=== PATIENT | male | born 1945 | race African-American/Black ===

== ENCOUNTER 2016-06-23 11:31 | Emergency (ER) | payer OTHER ==
[~2016-06-23] VITALS: Ht 170.2 cm; Wt 57.0 kg
[~2016-06-23 11:31] MED LIST: AMLO5TAB22 PO
[2016-06-23 11:35] VITALS: BP 170/87; PULSE 82; RESP 20; TEMP 97.9; O2SAT 95
[2016-06-23] MEDS ORDERED: TRAM50TA PO (11:52)
[2016-06-23] MEDS ORDERED: LISI-519 PO (11:52)
[2016-06-23 13:18] VITALS: BP 149/94; PULSE 75; RESP 16; O2SAT 100
[2016-06-23] MEDS ORDERED: diphenhydrAMINE HCL 50 MG/ML VIAL IV PUSH ONE (13:30)
[2016-06-23] MEDS ORDERED: SODIUM CHLOR 0.9% 1000 ML INJ 1,000 ML IV ONE (13:30)
[2016-06-23] MEDS ORDERED: PROCHLORPERAZINE INJ 10 MG/2 ML VIAL IVS ONE (13:30)
[2016-06-23] MEDS ORDERED: KETOROLAC TROMETHAMINE 30 MG/ML (IVP) VIAL IV PUSH ONE (13:30)
[2016-06-23 14:03] LABS: AUTOMATED NEUTROPHIL # 3.2 TH/MM3 (1.8-7.7); BASOPHIL # 0.1 TH/MM3 (0-0.2); BASOPHIL % 1.4 % (0.0-2.0); EOSINOPHIL # 0.1 TH/MM3 (0-0.4); EOSINOPHIL % 1.5 % (0.0-4.0); HEMATOCRIT 35.7 % (39.0-51.0); HEMO FLAGS DIFF FINAL; LYMPH % 35.6 % (9.0-44.0); LYMPHOCYTE # 2.2 TH/MM3 (1.0-4.8); MEAN CORPUSCULAR HEMOGLOBIN 32.1 PG (27.0-34.0); MEAN CORPUSCULAR HGB CONC 33.8 % (32.0-36.0); MONO % 10.2 % (0.0-8.0); NEUT % 51.3 % (16.0-70.0); PLATELET COUNT 411 TH/MM3 (150-450); RED BLOOD COUNT 3.75 MIL/MM3 (4.50-5.90); RED CELL DISTRIBUTION WIDTH 14.6 % (11.6-17.2); WHITE BLOOD COUNT 6.2 TH/MM3 (4.0-11.0)
[2016-06-23 14:16] LABS: ALKALINE PHOSPHATASE 108 U/L (45-117); ALT (GPT) 11 U/L (12-78); ANION GAP 6 MEQ/L (5-15); AST (GOT) 13 U/L (15-37); BICARBONATE 30.8 MEQ/L (21.0-32.0); BLOOD UREA NITROGEN 12 MG/DL (7-18); CHLORIDE 102 MEQ/L (98-107); GLOMERULAR FILTRATION RATE 110 ML/MIN (>89); POTASSIUM 4.4 MEQ/L (3.5-5.1); SODIUM (NA) 139 MEQ/L (136-145); TOTAL BILIRUBIN ADULT 0.4 MG/DL (0.2-1.0)
[2016-06-23 14:18] LABS: CREATINE KINASE 72 U/L (39-308)
--- NOTE | 2016-06-23 14:43 | PD ---
HPI Chief Complaint: Cold / Flu Symptoms Time Seen by Provider: 13:13 Travel History International Travel<30 days: No Contact w/Intl Traveler<30days: No Traveled to known affect area: No History of Present Illness HPI Patient is a 70 year old male who comes in complaining of body aches for 2 months. He says he has had pain all over including his chest since April. He also complains of a headache, which he says he has had for the past year. He has neck issues and says his headaches come from this. He says his pain today in his head is the same as it has always been. He says he feels like his bodyaches have become worse over the past 2 weeks and he has developed a cold. He denies fever or chills. He says he has some congestion and cough. He was here today with his girlfriend and one year old daughter who came in due to cold symptoms. PFSH Past Medical History Hx Anticoagulant Therapy: No Arthritis: Yes (OSTEOARTHRITIS) Asthma: Yes Atrial Fibrillation: Yes Autoimmune Disease: No Blood Disorders: No Anxiety: No Depression: No Heart Rhythm Problems: Yes Cancer: No Cardiac Catheterization: No Cardiovascular Problems: Yes High Cholesterol: Yes Chemotherapy: No Chest Pain: Yes Congestive Heart Failure: No COPD: No Cerebrovascular Accident: No Coronary Artery Disease: Yes Diabetes: No Diminished Hearing: No Endocrine: No Gastrointestinal Disorders: Yes GERD: Yes Genitourinary: No Hypertension: Yes Immune Disorder: No Musculoskeletal: No Neurologic: Yes Reproductive: No Respiratory: Yes Immunizations Current: No Myocardial Infarction: Yes (1983) Schizophrenia: Yes Seizures: Yes (WITH CRACK USE) Sleep Apnea: No Ulcer: Yes Tetanus Vaccination: Unknown Influenza Vaccination: Yes Past Surgical History Abdominal Surgery: No AICD: No Arteriovenous Shunt: No Cardiac Surgery: No Coronary Artery Bypass Graft: No Ear Surgery: No Endocrine Surgery: No Eye Surgery: No Genitourinary Surgery: Yes (RIGHT TESTICLE HYDROCELE) Gynecologic Surgery: No Insulin Pump: No Joint Replacement: No Neurologic Surgery: Yes (LAMINECTOMY, [address] 2-) Oral Surgery: Yes (TONSILLECTOMY) Pacemaker: No Thoracic Surgery: No Tonsillectomy: Yes Other Surgery: Yes (LAMINECTOMY X 2) Social History Alcohol Use: Yes (DAILY) Tobacco Use: Yes (CIGARETTES 1- PACK PER DAY) Substance Use: No Allergies-Medications (Allergen,Severity, Reaction): Coded Allergies: *MDRO Multi-Drug Resistant Organism (Verified Adverse Reaction, Unknown, ) MRSA (wounds) - 08/27/04, 08/13/06 Reported Meds & Prescriptions Reported Meds & Active Scripts Active Reported Lisinopril 5 Mg Tab 5 Mg PO DAILY Tramadol (Tramadol HCl) 50 Mg Tab 10 Mg PO DAILY Review of Systems Except as stated in HPI: all other systems reviewed are Neg General / Constitutional: No: Fever, Chills Eyes: No: Blurred Vision HENT: Positive: Headaches, Congestion Cardiovascular: Positive: Chest Pain or Discomfort Respiratory: Positive: Cough, No: Shortness of Breath Gastrointestinal: No: Nausea, Vomiting Musculoskeletal: Positive: Myalgias Skin: No Rash, No Change in Pigmentation Neurologic: No: Weakness, Dizziness Physical Exam Narrative GENERAL: Awake and alert in no acute distress. SKIN: Warm and dry. HEAD: Atraumatic. Normocephalic. EYES: Pupils equal and round. No scleral icterus. ENT: Mucous membranes pink and moist. NECK: Trachea midline. No JVD. CARDIOVASCULAR: Regular rate and rhythm. No murmur appreciated. RESPIRATORY: No accessory muscle use. Clear to auscultation. Breath sounds equal bilaterally. GASTROINTESTINAL: Abdomen soft, non-tender, nondistended. MUSCULOSKELETAL: No obvious deformities. No clubbing. No cyanosis. No edema. NEUROLOGICAL: Awake and alert. No obvious cranial nerve deficits. Motor grossly within normal limits. Normal speech. PSYCHIATRIC: Appropriate mood and affect; insight and judgment normal. Data Data Last Documented VS Vital Signs Date Time Temp Pulse Resp B/P Pulse Ox O2 Delivery O2 Flow Rate FiO2 06/23/16 15:07 14 06/23/16 15:00 71 146/85 98 Room Air 06/23/16 11:35 97.9 Orders Electrocardiogram (06/23/16 ) Complete Blood Count With Diff (06/23/16 13:22) Comprehensive Metabolic Panel (06/23/16 13:22) Troponin I (06/23/16 13:22) Influenzae A/B Antigen (06/23/16 13:22) Chest, Pa & Lat (06/23/16 ) Ckmb (Isoenzyme) Profile (06/23/16 13:22) Sodium Chlor 0.9% 1000 Ml Inj (Ns 1000 M (06/23/16 13:30) Prochlorperazine Inj (Compazine Inj) (06/23/16 13:30) Diphenhydramine Inj (Benadryl Inj) (06/23/16 13:30) Ketorolac Inj (Toradol Inj) (06/23/16 13:30) Labs Laboratory Tests Test 06/23/16 13:40 White Blood Count 6.2 TH/MM3 Red Blood Count 3.75 MIL/MM3 Hemoglobin 12.1 GM/DL Hematocrit 35.7 % Mean Corpuscular Volume 95.0 FL Mean Corpuscular Hemoglobin 32.1 PG Mean Corpuscular Hemoglobin 33.8 % Concent Red Cell Distribution Width 14.6 % Platelet Count 411 TH/MM3 Mean Platelet Volume 7.7 FL Neutrophils (%) (Auto) 51.3 % Lymphocytes (%) (Auto) 35.6 % Monocytes (%) (Auto) 10.2 % Eosinophils (%) (Auto) 1.5 % Basophils (%) (Auto) 1.4 % Neutrophils # (Auto) 3.2 TH/MM3 Lymphocytes # (Auto) 2.2 TH/MM3 Monocytes # (Auto) 0.6 TH/MM3 Eosinophils # (Auto) 0.1 TH/MM3 Basophils # (Auto) 0.1 TH/MM3 CBC Comment DIFF FINAL Differential Comment Sodium Level 139 MEQ/L Potassium Level 4.4 MEQ/L Chloride Level 102 MEQ/L Carbon Dioxide Level 30.8 MEQ/L Anion Gap 6 MEQ/L Blood Urea Nitrogen 12 MG/DL Creatinine 0.84 MG/DL Estimat Glomerular Filtration 110 ML/MIN Rate Random Glucose 65 MG/DL Calcium Level 9.2 MG/DL Total Bilirubin 0.4 MG/DL Aspartate Amino Transf 13 U/L (AST/SGOT) Alanine Aminotransferase 11 U/L (ALT/SGPT) Alkaline Phosphatase 108 U/L Total Creatine Kinase 72 U/L Troponin I LESS THAN 0.02 NG/ML Total Protein 7.3 GM/DL Albumin 2.8 GM/DL [facility] Medical Decision Making Medical Screen Exam Complete: Yes Emergency Medical Condition: Yes Medical Record Reviewed: Yes Interpretation(s) ECG shows normal sinus rhythm at 66, no ST elevation or depression Differential Diagnosis Pneumonia versus influenza versus URI versus chronic pain Narrative Course Patient is a 70-year-old male comes in complaining of pain all over as well as a headache. He has had the symptoms for several months up to a year. He says they've been worse for the past 2 weeks. Exam shows no acute abnormalities. IV established, labs sent. Labs show no acute abnormalities. ECG shows no signs of ischemia. Patient is mainly complaining of pain everywhere, does not really seem to be having chest pain specifically. He did have a stress test done in February that was normal. Patient given IV fluids, Compazine, Benadryl, Toradol. He states he is feeling a little bit better. Chest x-ray shows no acute abnormalities. Patient will be discharge at this time to follow-up with his doctor. Advised to rest and drink plenty of fluids. Advised to take ibuprofen as needed for pain. Advised to return to the ED as needed for any worsening symptoms. He is comfortable with discharge at this time. Diagnosis Primary Impression: Viral syndrome Patient Instructions: General Instructions, Viral Syndrome (ED) Additional Instructions: Drink plenty of fluids. Take Ibuprofen as needed for pain. Follow up with your doctor. Return to the ED as needed for any worsening symptoms. Disposition: 01 DISCHARGE HOME Condition: Stable Araceli Brewster MD Jun 23, 2016 14:43
--- NOTE | 2016-06-23 14:59 | RADRPT ---
EXAM DATE/TIME: 06/23/2016 14:28 [facility] COMPARISON: CHEST SINGLE AP, February 18, 2016, 16:24. INDICATIONS : Patient complains of cough and shortness of breath. MEDICAL HISTORY : Chronic obstructive pulmonary disease. Asthma. SURGICAL HISTORY : None. ENCOUNTER: Initial ACUITY: 2 weeks PAIN SCORE: 0/10 LOCATION: chest FINDINGS: PA and lateral views of the chest demonstrate a normal-sized cardiac silhouette. There is no effusion , consolidation, or pneumothorax. The bones and soft tissues demonstrate no acute abnormality. CONCLUSION: No acute cardiopulmonary abnormality is identified. Jb Sterling MD on June 23, 2016 at 14:57 Board Certified Radiologist. This report was verified electronically.
[2016-06-23 15:00] VITALS: BP 146/85; PULSE 71; RESP 19; O2SAT 98
[2016-06-23 15:07] VITALS: RESP 14
--- NOTE | 2016-06-25 21:31 | EKG ---
Date Performed: 06/23/2016 Time Performed: 13:25:22 PTAGE: 70 years EKG: Sinus rhythm WITH SHORT IN INTERVAL POSSIBLE RIGHT VENTRICULAR CONDUCTION DELAY BORDERLINE ECG PREVIOUS TRACING : 02/18/2016 22.22 Compared to prior tracing no significant change DOCTOR: Félix Peck Interpretating Date/Time 06/25/2016 21:30:02
== END 2016-06-23 15:23 | disposition home or self-care (01) ==
LOC: NEPB 11:31 → NEPA 15:23
DX: B34.9 Viral infection, unspecified (principal); I48.91 Unspecified atrial fibrillation; E78.00 Pure hypercholesterolemia, unspecified; I25.10 Atherosclerotic heart disease of native coronary artery without angina pectoris; I10 Essential (primary) hypertension; K21.9 Gastro-esophageal reflux disease without esophagitis; F17.210 Nicotine dependence, cigarettes, uncomplicated; I25.2 Old myocardial infarction
CPT/HCPCS: 71020; 80053; 82550; 84484; 85025; 87804; 93005; 96361; 96374; 96375; 99284; J0780; J1200; J1885; J7030

== ENCOUNTER 2016-09-30 11:14 | Emergency (ER) | payer OTHER ==
[~2016-09-30] VITALS: Ht 167.6 cm; Wt 54.0 kg
[~2016-09-30 11:14] MED LIST changes: -AMLO5TAB22 PO; +LISI-519 PO; +TRAM50TA PO
[2016-09-30 11:17] VITALS: BP 161/106; PULSE 81; RESP 17; TEMP 98; O2SAT 98
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
[2016-09-30] MEDS ORDERED: IBUP800T23 PO (13:39)
== END 2016-09-30 13:48 | disposition home or self-care (01) ==
LOC: NEPK 11:14
DX: S62.521A Displaced fracture of distal phalanx of right thumb, initial encounter for closed fracture (principal); M95.12 Cauliflower ear, left ear; R51 Headache; R42 Dizziness and giddiness; R68.84 Jaw pain; I10 Essential (primary) hypertension; E78.00 Pure hypercholesterolemia, unspecified; F17.200 Nicotine dependence, unspecified, uncomplicated; Y04.2XXA Assault by strike against or bumped into by another person, initial encounter; Z87.39 Personal history of other diseases of the musculoskeletal system and connective tissue; Z87.09 Personal history of other diseases of the respiratory system; Z86.79 Personal history of other diseases of the circulatory system; Z87.19 Personal history of other diseases of the digestive system; Z86.69 Personal history of other diseases of the nervous system and sense organs; Z86.59 Personal history of other mental and behavioral disorders
CPT/HCPCS: 29130; 70450; 73140

== ENCOUNTER 2017-06-23 05:02 | Emergency (ER) | payer OTHER ==
[~2017-06-23] VITALS: Ht 177.8 cm; Wt 65.0 kg
[~2017-06-23 05:02] MED LIST changes: +IBUP1TAB7 PO
[2017-06-23 05:04] VITALS: BP 217/133; PULSE 87; RESP 20; TEMP 97; O2SAT 99
[2017-06-23] MEDS ORDERED: SODIUM CHLOR 0.9% 1000 ML INJ 1,000 ML IV SCH (05:31)
[2017-06-23] MEDS ORDERED: KETOROLAC TROMETHAMINE 30 MG/ML (IVP) VIAL IVP ONE (05:45)
[2017-06-23] MEDS ORDERED: SODIUM CHLORIDE 0.9% FLUSH 10 ML FLUSH IV FLUSH PRN (05:45)
[2017-06-23] MEDS ORDERED: ONDANSETRON HCL 4 MG/2 ML VIAL IVP ONE (05:45)
--- NOTE | 2017-06-23 05:47 | PD ---
HPI . Abdominal pain Chief Complaint: Abdominal Pain Time Seen by Provider: 05:13 Travel History International Travel<30 days: No Contact w/Intl Traveler<30days: No Traveled to known affect area: No History of Present Illness HPI 71-year-old male with history of gallstones, complains of having right-sided abdominal pain that occurred shortly after having a large pork chop meal yesterday. Pain is getting worse this evening. Patient has mild nausea no vomiting denies fever chills sweats. Patient also denies diarrhea, melena or hematochezia. PFSH Past Medical History Narrative Medical Past medical history reviewed Hx Anticoagulant Therapy: No Arthritis: Yes (OSTEOARTHRITIS) Asthma: Yes Atrial Fibrillation: Yes Autoimmune Disease: No Blood Disorders: No Anxiety: No Depression: No Heart Rhythm Problems: Yes Cancer: No Cardiac Catheterization: No Cardiovascular Problems: Yes High Cholesterol: Yes Chemotherapy: No Chest Pain: Yes Congestive Heart Failure: No COPD: No Cerebrovascular Accident: No Coronary Artery Disease: Yes Diabetes: No Diminished Hearing: No Endocrine: No Gastrointestinal Disorders: Yes (GERD) GERD: Yes Genitourinary: No Heparin Induced Thrombocytopen: No Hypertension: Yes Immune Disorder: No Implanted Vascular Access Dvce: No Musculoskeletal: No Neurologic: Yes Reproductive: No Respiratory: Yes Immunizations Current: Yes Myocardial Infarction: Yes (1983) Schizophrenia: Yes Seizures: Yes (WITH CRACK USE) Sleep Apnea: No Ulcer: Yes Tetanus Vaccination: > 5 Years Influenza Vaccination: Yes Past Surgical History Abdominal Surgery: No AICD: No Arteriovenous Shunt: No Cardiac Surgery: No Coronary Artery Bypass Graft: No Ear Surgery: No Endocrine Surgery: No Eye Surgery: No Genitourinary Surgery: Yes (RIGHT TESTICLE HYDROCELE) Gynecologic Surgery: No Insulin Pump: No Joint Replacement: No Neurologic Surgery: Yes (LAMINECTOMY, [address] 2-07) Oral Surgery: Yes (TONSILLECTOMY) Pacemaker: No Thoracic Surgery: No Tonsillectomy: Yes Other Surgery: Yes (LAMINECTOMY X 2) Family History Family Myocardial Infarction: No Social History Alcohol Use: Yes (occu) Tobacco Use: Yes (1/2 ppd) Substance Use: No Allergies-Medications (Allergen,Severity, Reaction): Coded Allergies: *MDRO Multi-Drug Resistant Organism (Verified Adverse Reaction, Unknown, ) MRSA (wounds) - 08/27/04, 08/13/06 Reported Meds & Prescriptions Reported Meds & Active Scripts Active Ibuprofen 800 Mg Tab 800 Mg PO TID Reported Lisinopril 5 Mg Tab 5 Mg PO DAILY Tramadol (Tramadol HCl) 50 Mg Tab 10 Mg PO DAILY Narrative Medication Allergies and medications reviewed Review of Systems General / Constitutional: No: Fever Eyes: No: Visual changes HENT: No: Headaches Cardiovascular: No: Chest Pain or Discomfort Respiratory: No: Shortness of Breath Gastrointestinal: Positive: Nausea, Abdominal Pain, No: Vomiting, Diarrhea, Hematemesis Genitourinary: No: Urgency, Frequency, Dysuria, Hematuria Musculoskeletal: No: Pain Skin: No Rash Neurologic: No: Weakness Psychiatric: No: Depression Endocrine: No: Polydipsia Hematologic/Lymphatic: No: Easy Bruising Physical Exam Narrative GENERAL: Awake alert oriented 3 no acute distress SKIN: Warm and dry. Color is normal no diaphoresis cyanosis or pallor HEAD: Atraumatic. Normocephalic. EYES: Pupils equal and round. No scleral icterus. No injection or drainage. ENT: No nasal bleeding or discharge. Mucous membranes pink and moist. NECK: Trachea midline. No JVD. Supple full range of motion nontender CARDIOVASCULAR: Regular rate and rhythm. S1-S2 no murmurs rubs gallops RESPIRATORY: No accessory muscle use. Clear to auscultation. Breath sounds equal bilaterally. GASTROINTESTINAL: Abdomen soft, moderately tender right side, equivocal Martinez' s sign. Negative Rovsing's, less tender at McBurney's no rebound or guarding, nondistended. Hepatic and splenic margins not palpable. MUSCULOSKELETAL: Extremities without clubbing, cyanosis, or edema. No obvious deformities. NEUROLOGICAL: Awake and alert. No obvious cranial nerve deficits. Motor grossly within normal limits. Five out of 5 muscle strength in the arms and legs. Normal speech. PSYCHIATRIC: Appropriate mood and affect; insight and judgment normal. Data Data Last Documented VS Vital Signs Date Time Temp Pulse Resp B/P (MAP) Pulse Ox O2 Delivery O2 Flow Rate FiO2 06/23/17 05:04 97.0 87 20 217/133 (161) 99 Room Air Orders Orders Complete Blood Count With Diff (06/23/17 05:31) Comprehensive Metabolic Panel (06/23/17 05:31) Lipase (06/23/17 05:31) Urinalysis - C+S If Indicated (06/23/17 05:31) Ct Abd/Pel W/O Iv Contrast (06/23/17 05:31) Iv Access Insert/Monitor (06/23/17 05:31) Ondansetron Inj (Zofran Inj) (06/23/17 05:45) Sodium Chlor 0.9% 1000 Ml Inj (Ns 1000 M (06/23/17 05:31) Sodium Chloride 0.9% Flush (Ns Flush) (06/23/17 05:45) Ketorolac Inj (Toradol Inj) (06/23/17 05:45) Labs Laboratory Tests Test 06/23/17 05:35 White Blood Count 6.5 TH/MM3 Red Blood Count 4.12 MIL/MM3 Hemoglobin 13.4 GM/DL Hematocrit 40.0 % Mean Corpuscular Volume 97.3 FL Mean Corpuscular Hemoglobin 32.5 PG Mean Corpuscular Hemoglobin Concent 33.4 % Red Cell Distribution Width 16.5 % Platelet Count 271 TH/MM3 Mean Platelet Volume 8.0 FL Neutrophils (%) (Auto) 47.3 % Lymphocytes (%) (Auto) 41.0 % Monocytes (%) (Auto) 6.6 % Eosinophils (%) (Auto) 4.2 % Basophils (%) (Auto) 0.9 % Neutrophils # (Auto) 3.1 TH/MM3 Lymphocytes # (Auto) 2.7 TH/MM3 Monocytes # (Auto) 0.4 TH/MM3 Eosinophils # (Auto) 0.3 TH/MM3 Basophils # (Auto) 0.1 TH/MM3 CBC Comment DIFF FINAL Differential Comment Blood Urea Nitrogen 19 MG/DL Creatinine 1.02 MG/DL Random Glucose 115 MG/DL Total Protein 7.5 GM/DL Albumin 3.5 GM/DL Calcium Level 8.9 MG/DL Alkaline Phosphatase 109 U/L Aspartate Amino Transf (AST/SGOT) 20 U/L Alanine Aminotransferase (ALT/SGPT) 17 U/L Total Bilirubin 0.4 MG/DL Sodium Level 140 MEQ/L Potassium Level 4.0 MEQ/L Chloride Level 109 MEQ/L Carbon Dioxide Level 26.0 MEQ/L Anion Gap 5 MEQ/L Estimat Glomerular Filtration Rate 88 ML/MIN Lipase 131 U/L MDM Medical Decision Making Medical Screen Exam Complete: Yes Emergency Medical Condition: Yes Medical Record Reviewed: Yes Differential Diagnosis Abdominal pain, cholecystitis, acute appendicitis, colitis, diverticulitis, renal colic Narrative Course CT abdomen and pelvis noncontrast reviewed. Patient has dilated right ureter proximal to distal two thirds. Possible ureteral calculi noted and pelvis. Patient had near complete improvement with Toradol IV. Laboratory examinations reviewed, no significant abnormalities Diagnosis Primary Impression: Renal colic on right side Patient Instructions: Abdominal Pain (ED), General Instructions, Renal Colic ( ED) Additional Instructions: Drink plenty of fluids. Motrin 400 mg twice daily for pain. Ultram 50 mg every 8 hours as needed for further pain. Follow-up with your doctor, recommend follow-up with urology. Return for worsening Scripts Ibuprofen (Ibuprofen) 400 Mg Tab 400 MG PO Q8H Y for PAIN SCALE 1 TO 10, #15 TAB 0 Refills Prov: Samm Queen MD 06/23/17 Disposition: 01 DISCHARGE HOME Condition: Stable Samm Queen MD Jun 23, 2017 05:47
[2017-06-23 05:54] LABS: AUTOMATED NEUTROPHIL # 3.1 TH/MM3 (1.8-7.7); BASOPHIL # 0.1 TH/MM3 (0-0.2); BASOPHIL % 0.9 % (0.0-2.0); EOSINOPHIL # 0.3 TH/MM3 (0-0.4); EOSINOPHIL % 4.2 % (0.0-4.0); HEMOGLOBIN 13.4 GM/DL (13.0-17.0); LYMPHOCYTE # 2.7 TH/MM3 (1.0-4.8); MEAN CELL VOLUME 97.3 FL (80.0-100.0); MEAN CORPUSCULAR HEMOGLOBIN 32.5 PG (27.0-34.0); MEAN CORPUSCULAR HGB CONC 33.4 % (32.0-36.0); MONO % 6.6 % (0.0-8.0); MONOCYTE # 0.4 TH/MM3 (0-0.9); NEUT % 47.3 % (16.0-70.0); PLATELET COUNT 271 TH/MM3 (150-450); RED BLOOD COUNT 4.12 MIL/MM3 (4.50-5.90); RED CELL DISTRIBUTION WIDTH 16.5 % (11.6-17.2); WHITE BLOOD COUNT 6.5 TH/MM3 (4.0-11.0)
[2017-06-23 06:09] LABS: ALBUMIN 3.5 GM/DL (3.4-5.0); ALT (GPT) 17 U/L (12-78); AST (GOT) 20 U/L (15-37); BLOOD UREA NITROGEN 19 MG/DL (7-18); CALCIUM 8.9 MG/DL (8.5-10.1); CHLORIDE 109 MEQ/L (98-107); CREATININE 1.02 MG/DL (0.60-1.30); GLOMERULAR FILTRATION RATE 88 ML/MIN (>89); GLUCOSE,RANDOM 115 MG/DL (74-106); LIPASE 131 U/L (73-393); SODIUM (NA) 140 MEQ/L (136-145)
[2017-06-23 06:11] LABS: ALKALINE PHOSPHATASE 109 U/L (45-117); TOTAL BILIRUBIN ADULT 0.4 MG/DL (0.2-1.0); TOTAL PROTEIN 7.5 GM/DL (6.4-8.2)
--- NOTE | 2017-06-23 06:22 | RADRPT ---
EXAM DATE/TIME: 06/23/2017 05:43 [facility] COMPARISON: No previous studies available for comparison. INDICATIONS : Right sided abdominal pain. ORAL CONTRAST: No oral contrast ingested. RADIATION DOSE: 4.52 CTDIvol (mGy) MEDICAL HISTORY : Myocardial infarction. Cardiovascular disease Hypertension.Asthma SURGICAL HISTORY : None. ENCOUNTER: Initial ACUITY: 1 day PAIN SCALE: 7/10 LOCATION: abdomen TECHNIQUE: Volumetric scanning of the abdomen and pelvis was performed. Using automated exposure control and ad justment of the mA and/or kV according to patient size, radiation dose was kept as low as reasonably achievable to obtain optimal diagnostic quality images. DICOM format image data is available electro nically for review and comparison. FINDINGS: LOWER LUNGS: The visualized lower lungs are clear. LIVER: Homogeneous density without lesion. There is no dilation of the biliary tree. No calcified gallston es. SPLEEN: Normal size without lesion. PANCREAS: Within normal limits. KIDNEYS: There is slight prominence of the right renal collecting system and proximal ureter in comparison to the left. Patient described small right sided renal calculi are not demonstrated on current exam. 6 m m calcified density in the right pelvis is difficult to localize but does not appear to correspond to the course of the distal ureter. Kidneys are otherwise unremarkable. ADRENAL GLANDS: Within normal limits. VASCULAR: Prominent atherosclerotic calcifications of the infrarenal abdominal aorta with focal ectasia measuri ng up to 2.4 cm. There is also likely focal dissection of the distal abdominal aorta near the bifurca tion. BOWEL/MESENTERY: The stomach, small bowel, and colon demonstrate no acute abnormality. Appendix is visualized and nor mal in appearance. There is no free intraperitoneal air or fluid. ABDOMINAL WALL: Within normal limits. RETROPERITONEUM: There is no lymphadenopathy. BLADDER: No wall thickening or mass. REPRODUCTIVE: Within normal limits. INGUINAL: There is no lymphadenopathy or hernia. MUSCULOSKELETAL: Degenerative spondylosis of the lower lumbar spine. CONCLUSION: 1. Slight prominence of the right renal collecting system and proximal ureter. No definite radiopaque renal calculi are noted although a 6 mm calcification in the right pelvis is difficult to definitive ly localize. This finding is nonspecific but may reflects the sequela of a recently passed stone. 2. Normal appendix. 3. Prominent atherosclerotic calcifications of the infrarenal aorta with focal ectasia measuring up t o 2.4 cm and likely focal dissection near the bifurcation. Gaston Wu MD on June 23, 2017 at 6:12 Board Certified Radiologist. This report was verified electronically.
[2017-06-23] MEDS ORDERED: IBUP1TAB5 PO (06:33)
[2017-06-23] MEDS ORDERED: TRAM50 PO (06:59)
== END 2017-06-23 08:20 | disposition home or self-care (01) ==
LOC: NEPC 05:02
DX: N23 Unspecified renal colic (principal); R11.0 Nausea; M19.90 Unspecified osteoarthritis, unspecified site; I48.91 Unspecified atrial fibrillation; J45.909 Unspecified asthma, uncomplicated; I10 Essential (primary) hypertension; K80.20 Calculus of gallbladder without cholecystitis without obstruction; Z72.0 Tobacco use
CPT/HCPCS: 74176; 80053; 83690; 85025; 96374; 96375; 99285; J1885; J2405; J7030

== ENCOUNTER 2018-01-24 10:43 | Inpatient (IN) ==
--- NOTE | 2018-01-24 11:11 | CT ---
EXAM DATE: 01/24/2018 11:06 AM EDT AGE/SEX: 72 years / Male INDICATIONS: Stroke alert. Left side weakness and facial droop. CLINICAL DATA: This is the patient's initial encounter. Patient reports that signs and symptoms have been present for 1 day and indicates a pain score of 0/10. MEDICAL/SURGICAL HISTORY: None. None. RADIATION DOSE: 35.74 CTDI (mGy) COMPARISON: [facility], CT BRAIN W/O CONTRAST, 09/30/2016. . TECHNIQUE: CT of the head without contrast. Using automated exposure control and adjustment of the mA and/or kV according to patient size, radiation dose was kept as low as reasonably achievable to ob tain optimal diagnostic quality images. DICOM format image data is available electronically for revi ew and comparison. FINDINGS: Cerebrum: The ventricles are normal for age. No evidence of midline shift, mass lesion, hemorrhage or acute infarction. No extraaxial fluid collections are seen. Posterior Fossa: The cerebellum and brainstem are intact. The 4th ventricle is midline. The cerebe llopontine angle is unremarkable. Extracranial: The visualized portion of the orbits is intact. Skull: The calvaria is intact. No evidence of skull fracture. CONCLUSION: Negative CT Head non contrast. Report was called by [Corey Cummings at 1109 ] Electronically signed by: Jb Nicole MD 01/24/2018 11:10 AM EDT
[2018-01-24] MEDS ORDERED: ALTEPLASE DRIP IV.SIG ONE (11:37)
[2018-01-24] MEDS ORDERED: Alteplase Bolus 9 MG/9 ML Syringe IV.PUSH ONE (11:37)
--- NOTE | 2018-01-24 11:38 | CT ---
EXAM DATE: 01/24/2018 11:21 AM EDT AGE/SEX: 72 years / Male INDICATIONS: Stroke alert. Left side weakness and facial droop. CLINICAL DATA: This is the patient's initial encounter. Patient reports that signs and symptoms have been present for 1 day and indicates a pain score of 0/10. MEDICAL/SURGICAL HISTORY: None. None. RADIATION DOSE: 28.14 CTDI (mGy) COMPARISON: [facility] [place], CT HEAD W/O CONTRAST, 01/24/2018. . TECHNIQUE: Volumetric scanning was performed using a multi-row detector CT scanner during bolus infu nirali of 77 ml Visipaque 320 (iodixanol) nonionic water-soluble contrast as a single exam dose. The data was post processed with a variety of visualization algorithms including full volume maximum int ensity projection, multi-planar sliding thin slab reformation, curved planar reformation, and surface rendering techniques. Using automated exposure control and adjustment of the mA and/or kV according to patient size, radiation dose was kept as low as reasonably achievable to obtain optimal diagnosti c quality images. DICOM format image data is available electronically for review and comparison. FINDINGS: There is excellent visualization of the major intracranial arteries out to the second-order branch ve ssels. There is no evidence for aneurysm, vessel truncation or stenosis, and no evidence for vascula r malformation. There is mild atherosclerotic disease involving the carotid siphon on bilaterally. CONCLUSION: 1. Mild atherosclerotic disease, otherwise unremarkable. Electronically signed by: Jed Alvarez MD 01/24/2018 11:37 AM EDT
--- NOTE | 2018-01-24 11:48 | CT ---
EXAM DATE: 01/24/2018 11:32 AM EDT AGE/SEX: 72 years / Male INDICATIONS: Stroke alert. Left side weakness and facial droop. CLINICAL DATA: This is the patient's initial encounter. Patient reports that signs and symptoms have been present for 1 day and indicates a pain score of 0/10. MEDICAL/SURGICAL HISTORY: None. None. RADIATION DOSE: 28.14 CTDI (mGy) COMPARISON: No prior exams available for comparison. TECHNIQUE: Volumetric scanning was performed using a multirow detector CT scanner during bolus infus ion of 77 ml Visipaque 320 (iodixanol) nonionic water-soluble contrast as a single exam dose. The data was postprocessed with a variety of visualization algorithms including full-volume maximum inten sity projection, multiplanar sliding thin-slab reformation, curved-planar reformation, and surface-re ndering techniques. Using automated exposure control and adjustment of the mA and/or kV according to patient size, radiation dose was kept as low as reasonably achievable to obtain optimal diagnostic q uality images. DICOM format image data is available electronically for review and comparison. Percent stenosis is calculated using the diameter of the stenotic region over the diameter of the nor mal distal internal carotid artery. FINDINGS: There is slight atherosclerotic plaquing at the origin of the left subclavian artery from the aortic arch and origin of bilateral ICAs. No significant stenosis is seen. The vertebral arteries are intact . CONCLUSION: 1. Mild atherosclerotic changes, otherwise unremarkable. Electronically signed by: Jed Alvarez MD 01/24/2018 11:46 AM EDT
--- NOTE | 2018-01-24 11:54 | XR ---
EXAM DATE: 01/24/2018 11:51 AM EDT AGE/SEX: 72 years / Male INDICATIONS: Stroke alert. CLINICAL DATA: This is the patient's initial encounter. Patient reports that signs and symptoms have been present for 1 day and indicates a pain score of Nonresponsive. MEDICAL/SURGICAL HISTORY: Non-responsive. Non-responsive. COMPARISON: [facility] – [place], CHEST SINGLE AP, 02/18/2016. . FINDINGS: No significant new focal pleural or parenchymal opacities. Stable mild elevation of the left hemidiap hragm. The cardiomediastinal contours are stable. Osseous structures are intact. CONCLUSION: 1. No acute abnormality or significant interval change. Electronically signed by: Gaston Wu MD 01/24/2018 11:53 AM EDT
--- NOTE | 2018-01-24 11:56 | ED ---
HPI General Chief Complaint: Stroke Alert Stated Complaint: Stroke Alert Time Seen by Provider: 01/24/18 10:50 History of Present Illness HPI Narrative: Patient brought in by [facility] for stroke alert. Patient was fishing with his friends and stated that he was not feeling well and felt weak. He called 911. EMS arrived on the scene they stated that he was weak on the left with left facial droop. Patient is complaining of a headache. He denies taking any blood thinners. He denies chest pain or shortness of breath. Related Data Home Medications Medication Instructions Recorded Confirmed No Known Home Medications 01/24/18 01/24/18 Allergies Allergy/AdvReac Type Severity Reaction Status Date / Time *MDRO Multi-Drug Resistant AdvReac Unknown Uncoded 06/23/17 05:08 Organism Review of Systems ROS: all other systems reviewed are negative [facility] Social History Social History Second Hand Smoke Exposure: Yes Smoking Status: Current every day smoker Tobacco Type: Cigarettes How Often Do You Have a Drink Containing Alcohol: 4 or more times a week Recent Travel in [facility] within the Last 8 Weeks: No Recent Out of Country Travel within the Last 8 Weeks: No Immunization History Tetanus Immunization: Unsure Exam Narrative Exam Narrative: GENERAL: Drowsy. SKIN: Focused skin assessment warm/dry. HEAD: Atraumatic. Normocephalic. EYES: Pupils equal and round. No scleral icterus. No injection or drainage. Extraocular muscles intact bilaterally. ENT: No nasal bleeding or discharge. Mucous membranes pink and moist. NECK: Trachea midline. No JVD. CARDIOVASCULAR: Regular rate and rhythm. No murmur appreciated. RESPIRATORY: No accessory muscle use. Clear to auscultation. Breath sounds equal bilaterally. GASTROINTESTINAL: Abdomen soft, non-tender, nondistended. Hepatic and splenic margins not palpable. MUSCULOSKELETAL: No obvious deformities. No clubbing. No cyanosis. No edema. NEUROLOGICAL: Drowsy. No obvious cranial nerve deficits. Motor grossly within normal limits. Slight slurred speech. Decreased sensation on the left. Left facial droop. NIH stroke scale initially of 19. PSYCHIATRIC: Appropriate mood and affect; insight and judgment normal. Course Initial Documented Vital Signs Pulse Rate 81 01/24/18 10:44 Respiratory Rate 17 01/24/18 10:44 Blood Pressure 155/91 H 01/24/18 10:44 Pulse Oximetry 96 01/24/18 10:44 Last Documented Vital Signs Pulse Rate 76 01/24/18 11:22 Respiratory Rate 18 01/24/18 11:22 Blood Pressure 158/97 H 01/24/18 11:22 Pulse Oximetry 98 01/24/18 11:22 Critical Care Time Critical Care Time: Yes Total Critical Care Time: 30 Attestation: Aggregate critical care time was 30 minutes. Time to perform other separately billable procedures was not included in the critical care time. My time did not include minutes spent treating any other patients simultaneously or on activities that did not directly contribute to the patient's treatment. The services I provided to this patient were to treat and/or prevent clinically significant deterioration that could result in: Permanent neurological deficit, , increased morbidity I provided critical care services requiring my management, as noted below: Chart data review, documentation time, medication orders and management, vital sign assessments/reviewing monitor data, ordering and reviewing lab tests, ordering and interpreting/reviewing x-rays and diagnostic studies, care of the patient and discussion of the patient with the admitting physicians. NIH Stroke Scale NIHSS Time Completed NIHSS Time Completed: 10:48 NIH Stroke Scale Level of Consciousness: 1-Drowsy Orientation Questions: 1-One task correct Responds to Commands: 1-One task correct Gaze Eye Movement: 0-Horizontal movement WNL Visual Oliva: 0-No visual field defect Facial Movement: 1-Minor facial palsy Motor Functions Arm LEFT: 3-No effort against gravity Motor Functions Arm RIGHT: 3-No effort against gravity Motor Functions Leg LEFT: 3-No effort against gravity Motor Functions Leg RIGHT: 3-No effort against gravity Limb Ataxia: 0-No ataxia Sensory Loss: 1-Mild sensory loss Best Language: 1-Mild aphasia Articulation: 1-Mild dysarthia Extinction or Inattention Sensory: 0-Absent Total: 19 Quality Measure Queries Stroke Last date observed well: 01/24/18 Last time observed well: 10:15 Medical Decision Making MDM Narrative Medical decision making narrative: Patient presents to the emergency department as a stroke alert. Initial stroke scale score of 19. Labs, EKG, chest x-ray, head CT, CTA head and neck ordered. This case with neurology on-call,Isabel. Advised to give TPA. Patient was concented for tpa and advised of risk of bleeding, he gave verbal consent. Labs: cbc wnl, POC chemistry slight decrease potassium, normal creatinine; CXR- no acute change, head CT: No acute process; CTA head: CONCLUSION:1. Mild atherosclerotic disease, otherwise unremarkable. CTA neck: CONCLUSION:1. Mild atherosclerotic changes, otherwise unremarkable. After CT scan patient's reassessment stroke scale was 2. Discussed again with Dr Hall. Advised to give tPa. Med given. Patient flat on stretcher and IVF hanging. 1419: Patient's sister at bedside, states he's feeling better. He's been admitted to surgical ICU. Medical Screen Exam Complete: Yes Emergency Medical Condition: Yes Differential Diagnosis Differential Diagnosis: CVA, TIA, ICH Lab Data Lab Results 01/24/18 01/24/18 01/24/18 Range/Units 10:40 10:45 13:20 POC Hgb (Calc) 11.2 L (13.0-17.0) g/dL POC Hct 33.0 L (39-51.0) % POC Sodium 140 (137-144) mmol/L POC Potassium 3.4 L (3.6-5.0) mmol/L POC Chloride 102 (102-111) mmol/L POC BUN 6 (5-21) mg/dL POC Creatinine 0.7 (0.6-1.3) mg/dL POC Glucose 125 H (68-110) mg/dL Urine Color (Yellw/Straw) Urine Clarity (Clear) Urine pH (5.0-8.5) Ur Specific Hurricane (1.002-1.035) Urine Protein (Neg-Trace) mg/dL Urine Glucose (UA) (Negative) mg/dL Urine Ketones (Negative) mg/dL Urine Occult Blood (Negative) Urine Nitrate (Negative) Urine Bilirubin (Negative) Urine Urobilinogen (Less than 2) mg/dL Ur Leukocyte Esterase (Negative) Urine RBC (0-3) /hpf Urine WBC (0-5) /hpf Ur Squamous Epith Cells (0-5) /hpf Micro UA Comment Ur Microscopic Review Urine Culture Comments Urine Opiates Screen Neg (Neg) Ur Barbiturates Screen Neg (Neg) Ur Amphetamines Screen Neg (Neg) U Benzodiazepines Scrn Neg (Neg) Urine Cocaine Screen Neg (Neg) U Cannabinoids Screen Neg (Neg) Blood Type O Positive Antibody Screen Negative 01/24/18 Range/Units 13:20 POC Hgb (Calc) (13.0-17.0) g/dL POC Hct (39-51.0) % POC Sodium (137-144) mmol/L POC Potassium (3.6-5.0) mmol/L POC Chloride (102-111) mmol/L POC BUN (5-21) mg/dL POC Creatinine (0.6-1.3) mg/dL POC Glucose (68-110) mg/dL Urine Color Straw (Yellw/Straw) Urine Clarity Clear (Clear) Urine pH 6.0 (5.0-8.5) Ur Specific Hurricane 1.019 (1.002-1.035) Urine Protein Negative (Neg-Trace) mg/dL Urine Glucose (UA) Negative (Negative) mg/dL Urine Ketones Negative (Negative) mg/dL Urine Occult Blood Negative (Negative) Urine Nitrate Negative (Negative) Urine Bilirubin Negative (Negative) Urine Urobilinogen Less than 2 (Less than 2) mg/dL Ur Leukocyte Esterase Negative (Negative) Urine RBC Less than 1 (0-3) /hpf Urine WBC Less than 1 (0-5) /hpf Ur Squamous Epith Cells <1 (0-5) /hpf Micro UA Comment Culture not ind Ur Microscopic Review Not Reportable Urine Culture Comments Culture not ind Urine Opiates Screen (Neg) Ur Barbiturates Screen (Neg) Ur Amphetamines Screen (Neg) U Benzodiazepines Scrn (Neg) Urine Cocaine Screen (Neg) U Cannabinoids Screen (Neg) Blood Type Antibody Screen Imaging Data Radiologist's impression: Chest X-Ray 01/24/18 10:58 CONCLUSION: 1. No acute abnormality or significant interval change. Head CT 01/24/18 10:58 CONCLUSION: Negative CT Head non contrast. Report was called by [Corey Cummings at 1109 ] Head CTA 01/24/18 10:58 CONCLUSION: 1. Mild atherosclerotic disease, otherwise unremarkable. Neck CTA 01/24/18 10:58 CONCLUSION: 1. Mild atherosclerotic changes, otherwise unremarkable. ECG Data Attestation: I personally reviewed and interpreted this ECG as follows: (Sinus rhythm, rate 71, normal axis, wave inversion in V1 and V2, right ventricular conduction delay, left atrial enlargement,) Discharge Plan Discharge Disposition Patient Disposition: 30 Still Patient Discharge Condition Condition: Stable Discharge Details Diagnosis: Acute ischemic stroke Physicians Team ED Provider: Sandra Lozano Primary Care Provider: UNKNOWN, Attending Provider: Navneet Chery Other Providers: Garewal,Aj Discharge Interventions Interventions: Vital Signs Last Done: 01/24/18 11:22 Status ED Status: Admitted Patient
[2018-01-24] MEDS ORDERED: Bisacodyl 10 MG Supp RECTAL PRN (11:57)
[2018-01-24 14:04] LABS: Bilirubin,Urine Negative (Negative); Clarity,Urine Clear (Clear); Color,Urine Straw (Yellw/Straw); Glucose,Urine (UA) Negative (Negative); Leukocyte Esterase,Urine Negative (Negative); Nitrite,Urine Negative (Negative); Specific Gravity,Urine 1.019 (1.002-1.035); Squamous Epithelial Cell,Urine <1 /hpf (0-5)
[2018-01-24 14:09] LABS: Amphetamine Screen,Urine Neg (Neg); Barbiturate Screen,Urine Neg (Neg); Cannabinoid Screen,Urine Neg (Neg); Cocaine Screen,Urine Neg (Neg)
[2018-01-24 14:11] LABS: Opiate Screen,Urine Neg (Neg)
[2018-01-24] MEDS ORDERED: Clevidipine Inj 25 MG/50 ML VIAL IV.CONT PRN (15:49)
--- NOTE | 2018-01-24 16:18 | P.HPCC ---
History of Present Illness Service: Critical care medicine Primary Care Physician: UNKNOWN Chief Complaint: Stroke alert History of Present Illness: This 72-year-old right-handed man developed generalized weakness and loss of use of his left arm. On arrival to the emergency department he had a left facial droop and his speech was slurred. He is on no anticoagulants and has no tendency for bleeding. CT of the head was negative for acute injury and received TPA. CT angiography of the neck and head vessels was negative aside from mild atherosclerotic disease. The gentleman is left-sided weakness improved considerably after TPA. His speech is much improved but he still has some slurring. This patient admits to drinking 4-5 bottles of beer a day and occasionally imbibes whiskey. His toxicology screen was negative on arrival but the emergency department did not check for alcohol level. - Diagnosis (1) Acute ischemic stroke (2) Hypertension Inpatient Certification: I certify that the inpatient services were ordered in accordance with Medicare regulations governing the order. This includes certification that hospital inpatient services are reasonable and necessary and in the case of services not specified as inpatient-only under 42 CFR 419.22(n), that they are appropriately provided as inpatient services in accordance to with the 2-midnight benchmark under 43 CFR 412.3(e) Estimated Total Length of Stay (Days): 3 Plans for Post Hospital Care: Home Review of Systems The patient complains of a headache. He realizes that he is having trouble with his speech. He denies chest pain or shortness of breath. Again, he readily admits to drinking 45 beers per day and occasionally using whiskey. PMF - History History Provided By: Patient, Medical Liaison / EMT - Medical / Surgical Hx Neg / Unobtainable Medical Problems Denied: Yes Surgical History: Unable to Obtain - Medical History Medical History: Medical History (Last Updated 01/25/18 @ 17:24 by Zoraida Conway RN) Arthritis Asthma Back pain Bipolar disorder Bronchitis Cataract Decreased vision Dizziness Dysrhythmia, cardiac Hepatitis High cholesterol History of MRSA infection History of dental problems Hx of headache Kidney stones MDRO (multiple drug resistant organisms) resistance Migraine Neck pain Post traumatic stress disorder due to war, terrorism, or hostility Prostate disorder Stroke Syncope - Surgical History Surgical History: Surgical History (Last Updated 01/25/18 @ 17:27 by Zoraida Conway RN) History of back surgery Hx of tonsillectomy - Tobacco History Second Hand Smoke Exposure: Yes Tobacco Use In Past 30 Days: Yes Smoking Status: Current every day smoker Tobacco Type: Cigarettes - Alcohol History How Often Do You Have a Drink Containing Alcohol: 4 or more times a week - Travel History History of Recent Travel: No Recent Travel in the [place] Within the Last 8 Weeks: No Recent Travel Out of the Country Within the Last 8 Weeks: No - Immunization History Tetanus Immunization: Unsure Hx Influenza Vaccine This Season: Unable to Assess Medications and Allergies Active Medications: Active Medications Acetaminophen (Tylenol) 650 mg PO Q6H PRN PRN Reason: PAIN 1-10 AND/OR FEVER >101F Al Hydroxide/Mg Hydroxide (Milk Of Magnesia Liq) 30 ml PO Q12H PRN PRN Reason: Mild Constipation Albuterol (Duoneb Neb (Prn)) 1 ampul NEB Q2HR NEB PRN PRN Reason: WHEEZING Bisacodyl (Dulcolax Supp) 10 mg RECTAL DAILY PRN PRN Reason: SEVERE CONSITIPATION Chlorhexidine Gluconate (Chlorhexidine 2% Cloth) 3 pack TOPICAL DAILY@0400 CARMEN Stop: 01/30/18 03:59 Chlorhexidine Gluconate (Chlorhexidine 2% Cloth) 3 pack TOPICAL DAILY@0400 PRN PRN Reason: Extra cloth needed Stop: 01/30/18 03:59 Clonidine HCl (Catapres) 0.1 mg PO Q6HR PRN PRN Reason: SBP > 160 Famotidine (Pepcid) 20 mg PO BID [facility] Hydralazine HCl (Apresoline) 50 mg PO TID [facility] Clevidipine (Cleviprex Inj) 25 mg in 50 mls @ 2 mls/hr IV.CONT TITRATE PRN; Protocol PRN Reason: Per protocol Lactulose (Lactulose Liq) 30 ml PO DAILY PRN PRN Reason: SEVERE CONSITIPATION Lisinopril (Prinivil) 5 mg PO BID [facility] Ondansetron HCl (Zofran Inj) 4 mg IV.PUSH Q6H PRN PRN Reason: NAUSEA OR VOMITING Senna/Docusate Sodium (Zoila-Colace) 1 tab PO BID [facility] Sennosides (Senokot) 17.2 mg PO Q12H PRN PRN Reason: Moderate Constipation Sodium Chloride (Ns Flush) 2 ml IV.FLUSH BID [facility] Sodium Chloride (Ns Flush) 2 ml IV.FLUSH PRN PRN PRN Reason: FLUSH AFTER USING IV ACCESS Allergies Allergy/AdvReac Type Severity Reaction Status Date / Time *MDRO Multi-Drug Resistant AdvReac Unknown Uncoded 06/23/17 05:08 Organism Results - Labs CBC & Chem 7: 01/27/18 04:52 01/27/18 04:51 Labs: Urine 01/24/18 Range/Units 13:20 Urine Color Straw (Yellw/Straw) Urine Clarity Clear (Clear) Urine pH 6.0 (5.0-8.5) Ur Specific [place] 1.019 (1.002-1.035) Urine Protein Negative (Neg-Trace) mg/dL Urine Glucose (UA) Negative (Negative) mg/dL - Imaging Impressions Chest X-Ray 01/24/18 10:58 CONCLUSION: 1. No acute abnormality or significant interval change. Head CT 01/24/18 10:58 CONCLUSION: Negative CT Head non contrast. Report was called by [Corey Cummings at 1109 ] Head CTA 01/24/18 10:58 CONCLUSION: 1. Mild atherosclerotic disease, otherwise unremarkable. Neck CTA 01/24/18 10:58 CONCLUSION: 1. Mild atherosclerotic changes, otherwise unremarkable. Exam Vital signs: Vital Signs 01/24/18 10:44 01/24/18 10:58 01/24/18 11:22 Pulse Rate 81 76 Respiratory Rate 17 18 Blood Pressure 155/91 H 158/97 H Pulse Oximetry 96 100 98 01/24/18 14:27 Pulse Rate 62 Respiratory Rate 18 Blood Pressure 162/91 H Pulse Oximetry 100 Intake & Output 01/23/18 01/24/18 01/24/18 18:59 06:59 18:59 Weight 54.4 kg Narrative: General: Calm, alert Head: Atraumatic, normal. Eyes: Lateral arcus senilis Neck: Supple, airway widely patent, no obstructive noises, no drooling. Lungs: Light wheezes, no obstruction to air movement, no crackles, comfortable respiratory pattern. Heart: Regular rate and rhythm, bradycardia at 57, no murmur rub, no JVD Abdomen: Soft, nondistended, no guarding, no peritoneal irritation, bowel sounds are present Extremities: Thin, warm, well-perfused. No edema. Neuro: Alert, cooperative, oriented 3. Conversant, speech moderately slurred. Understands words clearly. PERRLA, EOMs intact, tongue protrusion midline, shoulder shrug symmetrical, smile and grimace symmetrical, jaw clench symmetrical. Moves 4 limbs with 5/5 power. Hand grasps and symmetrical. Deep tendon reflexes absent at both knees, no clonus, toes downgoing to plantar stimulation Caprini VTE Risk Assessment Caprini VTE Risk Assessment: Moderate/High Risk (score >= 2) Caprini Risk Assessment Model: Point Value = 1 Point Value = 2 Point Value = 3 Point Value = 5 Age 41-60 Minor surgery BMI > 25 kg/m2 Swollen legs Varicose veins or History of unexplained or recurrent spontaneous Oral contraceptives or hormone replacement Sepsis (< 1 month) Serious lung disease, including pneumonia (< 1 month) Abnormal pulmonary function Acute myocardial infarction Congestive heart failure (< 1 month) History of inflammatory bowel disease Medical patient at bed rest Age 61-74 Arthroscopic surgery Major open surgery (> 45 min) Laparoscopic surgery (> 45 min) Malignancy Confined to bed (> 72 hours) Immobilizing plaster cast Central venous access Age >= 75 History of VTE Family history of VTE Factor V Leiden Prothrombin [id number] Lupus anticoagulant Anticardiolipin antibodies Elevated serum homocysteine Heparin-induced thrombocytopenia Other congenital or acquired thrombophilia Stroke (< 1 month) Elective arthroplasty Hip, pelvis, or leg fracture Acute spinal cord injury (< 1 month) Prophylaxis Regimen: Total Risk Factor Score Risk Level Prophylaxis Regimen 0-1 Low Early ambulation 2 Moderate Order ONE of the following: *Sequential Compression Device (SCD) *Heparin 5000 units SQ BID 3-4 Higher Order ONE of the following medications: *Heparin 5000 units SQ TID *Enoxaparin/Lovenox 40 mg SQ daily (WT < 150 kg, CrCl > 30 mL/min) *Enoxaparin/Lovenox 30 mg SQ daily (WT < 150 kg, CrCl > 10-29 mL/min) *Enoxaparin/Lovenox 30 mg SQ BID (WT < 150 kg, CrCl > 30 mL/min) AND/OR *Sequential Compression Device (SCD) 5 or more Highest Order ONE of the following medications: *Heparin 5000 units SQ TID (Preferred with Epidurals) *Enoxaparin/Lovenox 40 mg SQ daily (WT < 150 kg, CrCl > 30 mL/min) *Enoxaparin/Lovenox 30 mg SQ daily (WT < 150 kg, CrCl > 10-29 mL/min) *Enoxaparin/Lovenox 30 mg SQ BID (WT < 150 kg, CrCl > 30 mL/min) AND *Sequential Compression Device (SCD) Assessment and Plan - Problem List (1) Acute ischemic stroke Code(s): I63.9 - Cerebral infarction, unspecified Status: Acute (2) Hypertension Code(s): I10 - Essential (primary) hypertension Status: Acute - Assessment and Plan Plan: Plan: 1. Routine post TPA order set. 2. N.p.o. pending swallow evaluation. 3. Maintain blood pressure less than 160/90 using Cleviprex. 4. Initiate long-term blood pressure control using JOSE inhibitor. 5. Add oral hydralazine if necessary. Patient is presently bradycardic. 6. Hold chemical DVT prophylaxis. 7. SCDs for DVT prophylaxis. 8. Pepcid for GI ulcer prophylaxis. 9. Repeat head CAT scan in 24 hours or earlier for neurologic change. 10. Check echo. 11. Lipid profile. 12. PT and OT evaluation. Overall impression: This gentleman appears to have sustained an ischemic stroke. Initial symptomatology was left sided weakness and slurred speech. He improved considerably following TPA administration. The patient is unclear about his handedness -he writes with one hand and throws with the opposite hand. Evaluation and care of this patient will be complicated by his considerable alcohol consumption. We will absolutely have to place him on a CIWA protocol. I have discussed his care in detail with his daughter at the bedside. Code Status: Full code. Discussed Condition With: Patient's daughter. Emergency department physician. (2) Hypertension Qualifiers: Hypertension type: essential hypertension Qualified Code(s): I10 - Essential (primary) hypertension
--- NOTE | 2018-01-24 16:19 | P.CONNEU ---
History of Present Illness Service: Neurology Primary Care Provider: UNKNOWN Chief Complaint: Stroke alert History of Present Illness: 72-year-old male brought in as a stroke alert. Noticed by his friend approximately 20-30 minutes prior to arrival with acute onset of weakness on the left side difficulty getting up. In the ER is on NIH stroke scale of 19. CT brain scan no acute lesion. CTA brain carotids showed mild atherosclerotic disease no significant vaso-occlusive disease. IV TPA discussed patient proceed with treatment. He understands the 6% risk of ICH, systemic bleeding, etc.. Patient denies any GI bleed bleed. Any history intracranial hemorrhage. Any history of TIA or stroke. States he does take Motrin off and on for chronic daily headaches. Denies any recent RI. Review of Systems All other systems reviewed negative except as stated in HPI [facility] - History History Provided By: Patient, Surgical Nurse / EMT - Medical History Medical History: Medical History (Last Updated 01/25/18 @ 17:24 by Zoraida Conway RN) Arthritis Asthma Back pain Bipolar disorder Bronchitis Cataract Decreased vision Dizziness Dysrhythmia, cardiac Hepatitis High cholesterol History of MRSA infection History of dental problems Hx of headache Kidney stones MDRO (multiple drug resistant organisms) resistance Migraine Neck pain Post traumatic stress disorder due to war, terrorism, or hostility Prostate disorder Stroke Syncope - Surgical History Surgical History: Surgical History (Last Updated 01/25/18 @ 17:27 by Zoraida Conway RN) History of back surgery Hx of tonsillectomy - Tobacco History Second Hand Smoke Exposure: Yes Tobacco Use In Past 30 Days: Yes Smoking Status: Current every day smoker Tobacco Type: Cigarettes - Alcohol History How Often Do You Have a Drink Containing Alcohol: 4 or more times a week - Travel History Recent Travel in the [facility] Within the Last 8 Weeks: No Recent Travel Out of the Country Within the Last 8 Weeks: No - Immunization History Tetanus Immunization: Unsure Medications and Allergies Active Medications: Active Medications Acetaminophen (Tylenol) 650 mg PO Q6H PRN PRN Reason: PAIN 1-10 AND/OR FEVER >101F Al Hydroxide/Mg Hydroxide (Milk Of Magnesia Liq) 30 ml PO Q12H PRN PRN Reason: Mild Constipation Albuterol (Duoneb Neb (Prn)) 1 ampul NEB Q2HR NEB PRN PRN Reason: WHEEZING Bisacodyl (Dulcolax Supp) 10 mg RECTAL DAILY PRN PRN Reason: SEVERE CONSITIPATION Chlorhexidine Gluconate (Chlorhexidine 2% Cloth) 3 pack TOPICAL DAILY@0400 CARMEN Stop: 01/30/18 03:59 Chlorhexidine Gluconate (Chlorhexidine 2% Cloth) 3 pack TOPICAL DAILY@0400 PRN PRN Reason: Extra cloth needed Stop: 01/30/18 03:59 Clonidine HCl (Catapres) 0.1 mg PO Q6HR PRN PRN Reason: SBP > 160 Famotidine (Pepcid) 20 mg PO BID [facility] Hydralazine HCl (Apresoline) 50 mg PO TID [facility] Clevidipine (Cleviprex Inj) 25 mg in 50 mls @ 2 mls/hr IV.CONT TITRATE PRN; Protocol PRN Reason: Per protocol Lactulose (Lactulose Liq) 30 ml PO DAILY PRN PRN Reason: SEVERE CONSITIPATION Lisinopril (Prinivil) 5 mg PO BID [facility] Ondansetron HCl (Zofran Inj) 4 mg IV.PUSH Q6H PRN PRN Reason: NAUSEA OR VOMITING Senna/Docusate Sodium (Zoila-Colace) 1 tab PO BID [facility] Sennosides (Senokot) 17.2 mg PO Q12H PRN PRN Reason: Moderate Constipation Sodium Chloride (Ns Flush) 2 ml IV.FLUSH BID [facility] Sodium Chloride (Ns Flush) 2 ml IV.FLUSH PRN PRN PRN Reason: FLUSH AFTER USING IV ACCESS Allergies Allergy/AdvReac Type Severity Reaction Status Date / Time *MDRO Multi-Drug Resistant AdvReac Unknown Uncoded 06/23/17 05:08 Organism Home Medications Medication Instructions Recorded Confirmed Type No Known Home Medications 01/24/18 01/24/18 History Exam Vital signs: Vital Signs 01/24/18 10:44 01/24/18 10:58 01/24/18 11:22 Pulse Rate 81 76 Respiratory Rate 17 18 Blood Pressure 155/91 H 158/97 H Pulse Oximetry 96 100 98 01/24/18 14:27 Pulse Rate 62 Respiratory Rate 18 Blood Pressure 162/91 H Pulse Oximetry 100 Intake & Output 01/23/18 01/24/18 01/24/18 18:59 06:59 18:59 Weight 54.4 kg Narrative: GENERAL: Alert no acute distress SKIN: Focused skin assessment warm/dry. HEAD: Atraumatic. Normocephalic. EYES: Pupils equal and round. No scleral icterus. No injection or drainage. Extraocular muscles intact bilaterally. ENT: No nasal bleeding or discharge. Mucous membranes pink and moist. NECK: Trachea midline. No JVD. CARDIOVASCULAR: Regular rate and rhythm. No murmur appreciated. RESPIRATORY: No accessory muscle use. Clear to auscultation. Breath sounds equal bilaterally. GASTROINTESTINAL: Abdomen soft, non-tender, nondistended. MUSCULOSKELETAL: No obvious deformities. No clubbing. No cyanosis. No edema. NEUROLOGICAL: Awake alert oriented 2-3, follows calm, reduced left nasolabial fold, left hemiataxia strength 4- out of 5 PSYCHIATRIC: Appropriate mood and affect; - Constitutional no acute distress - Routine HEENT Exam Head: Present: normocephalic Results - Labs CBC & Chem 7: 01/25/18 14:00 Labs: Laboratory Results - last 24 hr 01/24/18 01/24/18 01/24/18 10:40 10:45 13:20 POC Hgb (Calc) 11.2 L POC Hct 33.0 L POC Sodium 140 POC Potassium 3.4 L POC Chloride 102 POC BUN 6 POC Creatinine 0.7 POC Glucose 125 H Urine Color Urine Clarity Urine pH Ur Specific [place] Urine Protein Urine Glucose (UA) Urine Ketones Urine Occult Blood Urine Nitrate Urine Bilirubin Urine Urobilinogen Ur Leukocyte Esterase Urine RBC Urine WBC Ur Squamous Epith Cells Micro UA Comment Ur Microscopic Review Urine Culture Comments Urine Opiates Screen Neg Ur Barbiturates Screen Neg Ur Amphetamines Screen Neg U Benzodiazepines Scrn Neg Urine Cocaine Screen Neg U Cannabinoids Screen Neg Blood Type O Positive Antibody Screen Negative 01/24/18 13:20 POC Hgb (Calc) POC Hct POC Sodium POC Potassium POC Chloride POC BUN POC Creatinine POC Glucose Urine Color Straw Urine Clarity Clear Urine pH 6.0 Ur Specific [place] 1.019 Urine Protein Negative Urine Glucose (UA) Negative Urine Ketones Negative Urine Occult Blood Negative Urine Nitrate Negative Urine Bilirubin Negative Urine Urobilinogen Less than 2 Ur Leukocyte Esterase Negative Urine RBC Less than 1 Urine WBC Less than 1 Ur Squamous Epith Cells <1 Micro UA Comment Culture not ind Ur Microscopic Review Not Reportable Urine Culture Comments Culture not ind Urine Opiates Screen Ur Barbiturates Screen Ur Amphetamines Screen U Benzodiazepines Scrn Urine Cocaine Screen U Cannabinoids Screen Blood Type Antibody Screen - Imaging Impressions Chest X-Ray 01/24/18 10:58 CONCLUSION: 1. No acute abnormality or significant interval change. Head CT 01/24/18 10:58 CONCLUSION: Negative CT Head non contrast. Report was called by [Corey Cummings at 1109 ] Head CTA 01/24/18 10:58 CONCLUSION: 1. Mild atherosclerotic disease, otherwise unremarkable. Neck CTA 01/24/18 10:58 CONCLUSION: 1. Mild atherosclerotic changes, otherwise unremarkable. Review/Management - Review/Management Plan: Suspicious for right hemispheric stroke versus hypertensive encephalopathy. Etiologies include chronic hypertension small vessel mediated. CTA brain carotids do not reveal any significant vaso-occlusive disease. Recommendations MRI brain if feasible EEG Echo fasting lipids Keep blood pressure less than 180/100 at all times No blood thinners for at least 24 hours followed by repeat CT brain scan noncontrast exclude any ICH SCDs Therapy Discussed with AKHIL
[2018-01-24] MEDS ORDERED: Haloperidol Inj 5 MG/ML Ampul IV.PUSH PRN (16:22)
[2018-01-24] MEDS ORDERED: LORazepam 1 MG Tablet PO PRN (16:22)
[2018-01-24] MEDS: hydrALAZINE 50 MG Tablet PO SCH (19:40)
[2018-01-24] MEDS ORDERED: Famotidine PF Inj 20 MG/2 ML Vial IV.PUSH SCH (21:00)
[2018-01-24] MEDS: Acetaminophen 325 MG Tablet PO PRN (21:16)
[2018-01-24] MEDS: Lisinopril 5 MG Tablet PO SCH (21:16)
[2018-01-24] MEDS: Famotidine 20 MG Tablet PO SCH (21:16)
[2018-01-24] MEDS: Senna/Docusate Sodium 8.6/50 MG Tablet PO SCH (21:17)
[2018-01-25] MEDS: Acetaminophen 325 MG Tablet PO PRN ×4 (03:21→21:05)
[2018-01-25] MEDS ORDERED: Chlorhexidine Gluconate 2% 1 Pack (2 Cloths) TOPICAL PRN (04:00)
[2018-01-25] MEDS: Chlorhexidine Gluconate 2% 1 Pack (2 Cloths) TOPICAL SCH (06:15)
[2018-01-25] MEDS: Famotidine 20 MG Tablet PO SCH ×2 (08:46→20:51)
[2018-01-25] MEDS: hydrALAZINE 50 MG Tablet PO SCH ×3 (08:47→20:53)
[2018-01-25] MEDS: Lisinopril 5 MG Tablet PO SCH ×2 (08:47→20:53)
[2018-01-25] MEDS: Senna/Docusate Sodium 8.6/50 MG Tablet PO SCH ×2 (08:47→20:52)
--- NOTE | 2018-01-25 08:49 | P.PNCC ---
Subjective Subjective Remarks/Hospital Course: - Diagnosis: (1) Acute ischemic stroke (2) Hypertension (3) Chronic alcohol consumption (2) Hypertension Qualifiers: Hypertension type: essential hypertension Qualified Code(s): I10 - Essential (primary) hypertension 01/24: This 72-year-old right-handed man developed generalized weakness and loss of use of his left arm. On arrival to the emergency department he had a left facial droop and his speech was slurred. He is on no anticoagulants and has no tendency for bleeding. CT of the head was negative for acute injury and received TPA. CT angiography of the neck and head vessels was negative aside from mild atherosclerotic disease. The gentleman is left-sided weakness improved considerably after TPA. His speech is much improved but he still has some slurring. This patient admits to drinking 4-5 bottles of beer a day and occasionally imbibes whiskey. His toxicology screen was negative on arrival but the emergency department did not check for alcohol level. 01/25: Patient has improved speech this morning. Left arm and leg pretty much back to baseline. Speech improved. Blood pressure control acceptable. Lipid profile, cardiac echo pending. Repeat CAT scan of the head pending. No signs of alcohol withdrawal. Objective Vital Signs / I&O: Vital Signs 01/24/18 10:44 01/24/18 10:58 01/24/18 11:22 Temperature Pulse Rate 81 76 Respiratory Rate 17 18 Blood Pressure 155/91 H 158/97 H Pulse Oximetry 96 100 98 01/24/18 14:27 01/24/18 16:00 01/24/18 16:11 Temperature 97.5 F L Pulse Rate 62 62 Respiratory Rate 18 19 Blood Pressure 162/91 H 208/108 H Pulse Oximetry 100 100 99 01/24/18 16:18 01/24/18 17:00 01/24/18 18:00 Temperature Pulse Rate 62 58 L 52 L Respiratory Rate 22 9 L Blood Pressure 180/100 H 115/66 Pulse Oximetry 100 97 01/24/18 18:18 01/24/18 19:00 01/24/18 19:40 Temperature Pulse Rate 52 L 48 L Respiratory Rate 10 L Blood Pressure 132/78 Pulse Oximetry 100 99 01/24/18 20:00 01/24/18 21:00 01/24/18 22:00 Temperature 98.1 F Pulse Rate 49 L 50 L 48 L Respiratory Rate 14 14 14 Blood Pressure 116/90 117/71 138/78 Pulse Oximetry 100 100 100 01/24/18 23:00 01/25/18 00:00 01/25/18 01:00 Temperature 97.8 F Pulse Rate 48 L 50 L 48 L Respiratory Rate 11 L 10 L 12 Blood Pressure 135/81 131/79 106/68 Pulse Oximetry 100 100 100 01/25/18 02:00 01/25/18 03:00 01/25/18 04:00 Temperature Pulse Rate 59 L 48 L 44 L Respiratory Rate 13 11 L 11 L Blood Pressure 111/66 113/67 114/71 Pulse Oximetry 100 100 100 01/25/18 05:00 01/25/18 06:00 01/25/18 07:00 Temperature Pulse Rate 44 L 44 L 45 L Respiratory Rate 11 L 10 L Blood Pressure 132/67 129/78 133/68 Pulse Oximetry 100 100 Intake & Output 01/24/18 01/25/18 01/25/18 18:59 06:59 18:59 Intake Total 240 / 240 Output Total 1000 / 1000 900 / 900 Balance -760 / -760 -900 / -900 Weight 54.4 kg 54.4 kg Intake: Oral 240 / 240 Output: Urine 1000 / 1000 900 / 900 Other: Date of Last Bowel Movement 01/23/18 01/23/18 Objective Remarks: - Imaging Impressions Chest X-Ray 01/24/18 10:58 CONCLUSION: 1. No acute abnormality or significant interval change. Head CT 01/24/18 10:58 CONCLUSION: Negative CT Head non contrast. Report was called by [Corey Cummings at 1109 ] Head CTA 01/24/18 10:58 CONCLUSION: 1. Mild atherosclerotic disease, otherwise unremarkable. Neck CTA 01/24/18 10:58 CONCLUSION: 1. Mild atherosclerotic changes, otherwise unremarkable. Exam Narrative: General: Calm, alert Head: Atraumatic, normal. Eyes: Lateral arcus senilis. Neck: Supple, airway widely patent, no obstructive noises, no drooling. Lungs: Light wheezes, no obstruction to air movement, no crackles, comfortable respiratory pattern. Heart: Regular rate and rhythm, bradycardia at 58, no murmur rub, no JVD Abdomen: Soft, nondistended, no guarding, no peritoneal irritation, bowel sounds are present Extremities: Thin, warm, well-perfused. No edema. Neuro: Alert, cooperative, oriented 3. Conversant, speech moderately slurred. Understands words clearly. PERRLA, EOMs intact, tongue protrusion midline, shoulder shrug symmetrical, smile and grimace symmetrical, jaw clench symmetrical. Moves 4 limbs with 5/5 power. Left arm movement perhaps mildly weaker than the right. Hand grasps appear symmetrical. Deep tendon reflexes absent at both knees, no clonus, toes downgoing to plantar stimulation Assessment and Plan - Problem List (1) Acute ischemic stroke Code(s): I63.9 - Cerebral infarction, unspecified Status: Acute (2) Hypertension Code(s): I10 - Essential (primary) hypertension Status: Acute - Assessment and Plan Plan: Plan: 1. Routine post TPA order set. 2. N.p.o. pending swallow evaluation. 3. Maintain blood pressure less than 180/90 using Cleviprex. 4. Initiate long-term blood pressure control using JOSE inhibitor. 5. Add oral hydralazine if necessary. Patient is presently bradycardic. 6. Hold chemical DVT prophylaxis. 7. SCDs for DVT prophylaxis. 8. Pepcid for GI ulcer prophylaxis. 9. Repeat head CAT scan in 24 hours or earlier for neurologic change. 10. Check echo. 11. Lipid profile. 12. PT and OT evaluation. Overall impression: This gentleman appears to have sustained an ischemic stroke. Initial symptomatology was left sided weakness and slurred speech. He improved considerably following TPA administration. The patient is unclear about his handedness -he writes with one hand and throws with the opposite hand. Evaluation and care of this patient will be complicated by his considerable alcohol consumption. We will absolutely have to place him on a CIWA protocol. No signs of alcohol withdrawal so far. (2) Hypertension Qualifiers: Hypertension type: essential hypertension Qualified Code(s): I10 - Essential (primary) hypertension
--- NOTE | 2018-01-25 11:54 | MR ---
EXAM DATE: 01/25/2018 11:46 AM EDT AGE/SEX: 72 years / Male INDICATIONS: Cephalgia. Post TPA. CLINICAL DATA: This is the patient's initial encounter. Patient reports that signs and symptoms have been present for 1 day and indicates a pain score of 5/10. MEDICAL/SURGICAL HISTORY: None. Tonsillectomy. [place] [facility] [place]. . TECHNIQUE: Multiplanar, multisequence examination of the brain was performed without contrast. FINDINGS: Cerebrum: The ventricles are normal for age. No evidence of midline shift, mass lesion, hemorrhage or acute infarction. No extraaxial fluid collections are seen. There is some susceptibility artifac t in the right basal ganglia. The pituitary gland and suprasellar cistern are normal in configuration . White Matter: Scattered foci of bright T2 signal abnormalities are seen in the white matter and also to a lesser degree in the brainstem. Posterior Fossa: The cerebellum and brainstem are intact. The 4th ventricle is midline. The cerebel lopontine angle is unremarkable. The cerebellar tonsils are normal in position. Diffusion Imaging: No focal areas of restricted diffusion are seen. No evidence of acute infarction . Extracranial: The visualized portions of the orbits and paranasal sinuses are unremarkable. CONCLUSION: 1. 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 2. Susceptibility artifact right basal ganglia could be related to calcification or old hemorrhage. 3. No acute intracranial abnormality. Electronically signed by: Ish Bello MD 01/25/2018 11:53 AM EDT
--- NOTE | 2018-01-25 12:00 | CT ---
EXAM DATE: 01/25/2018 11:57 AM EDT AGE/SEX: 72 years / Male INDICATIONS: post TPA, Stroke alert yesterday CLINICAL DATA: This is the patient's subsequent encounter. Patient reports that signs and symptoms h ave been present for 1 day and indicates a pain score of 10/10. MEDICAL/SURGICAL HISTORY: None. None. RADIATION DOSE: 56.35 CTDI (mGy) [place] [facility] [place] W 3[place]24/2018. . TECHNIQUE: CT of the head without contrast. Using automated exposure control and adjustment of the mA and/or kV according to patient size, radiation dose was kept as low as reasonably achievable to ob tain optimal diagnostic quality images. DICOM format image data is available electronically for revi ew and comparison. FINDINGS: Cerebrum: The ventricles are normal for age. No evidence of midline shift, mass lesion, hemorrhage or acute infarction. No extraaxial fluid collections are seen. Scattered air is low-density in the w chivo matter. Posterior Fossa: The cerebellum and brainstem are intact. The 4th ventricle is midline. The cerebe llopontine angle is unremarkable. Extracranial: The visualized portion of the orbits is intact. Scattered sinus disease greatest in th e left frontal sinus. Skull: The calvaria is intact. No evidence of skull fracture. CONCLUSION: 1. Nonspecific white matter changes. 2. No acute hemorrhage . Electronically signed by: Ish Bello MD 01/25/2018 11:59 AM EDT
[2018-01-25 15:58] LABS: Anion Gap 8 meq/L (5-15); Aspartate Aminotransferase 14 U/L (15-37); Blood Urea Nitrogen 7 mg/dL (7-18); Calcium 8.6 mg/dL (8.5-10.1); Carbon Dioxide 28.7 meq/L (21.0-32.0); Chloride 107 meq/L (98-107); Cholesterol 139 mg/dL (120-200); Glomerular Filtration Rate 87 mL/min (>89); Glucose,Random 85 mg/dL (74-106); Potassium 3.7 meq/L (3.5-5.1); Sodium 144 meq/L (136-145)
[2018-01-25 16:01] LABS: Alanine Aminotransferase 11 U/L (12-78); Alkaline Phosphatase 101 U/L (45-117); Chol/HDL Ratio 2.26 Ratio; HDL Cholesterol 61.5 mg/dL (40.0-60.0); LDL Cholesterol,Calculated 62 mg/dL (0-99); Total Protein 6.6 g/dL (6.4-8.2); Triglycerides 80 mg/dL (42-150)
--- NOTE | 2018-01-25 17:21 | ECG ---
Date Performed: 01/24/2018 Time Performed: 11:21:09 PTAGE: 72 years EKG: Sinus rhythm WITH SINUS ARRHYTHMIA POSSIBLE LEFT ATRIAL ENLARGEMENT POSSIBLE RIGHT VENTRICULAR CONDUCTION DELAY P OSSIBLE LATERAL MYOCARDIAL INFARCTION ABNORMAL ECG NO PREVIOUS TRACING DOCTOR: Martin Wilkins Interpretating Date/Time 01/25/2018 17:18:42
--- NOTE | 2018-01-25 21:07 | MG ---
cc: Aj Hall MD EEG RECORD: 18-1325 Well formed posterior rhythm 8-9 Hz, 20-40 microvolts, low-amplitude beta in the frontal channels. Good anterior to posterior gradient. Good driving with photic stimulation overall. Attenuation background slowing with transition into drowsy state followed by stage I sleep. Single lead EKG showing sinus rhythm. INTERPRETATION: Normal awake sleep electroencephalogram. Clinical correlation. Aj Hall MD MG/ct , 08:32 PM , 08:36 PM
[2018-01-26] MEDS: Chlorhexidine Gluconate 2% 1 Pack (2 Cloths) TOPICAL SCH (07:09)
[2018-01-26] MEDS: Lisinopril 5 MG Tablet PO SCH ×2 (09:55→22:14)
[2018-01-26] MEDS: Acetaminophen 325 MG Tablet PO PRN (09:55)
[2018-01-26] MEDS: hydrALAZINE 50 MG Tablet PO SCH ×3 (09:56→18:25)
[2018-01-26] MEDS: Famotidine 20 MG Tablet PO SCH ×2 (09:56→22:14)
[2018-01-26] MEDS: Senna/Docusate Sodium 8.6/50 MG Tablet PO SCH ×2 (09:57→22:14)
--- NOTE | 2018-01-26 11:24 | P.PNIM ---
Subjective Interval history: Patient seen and examined this morning. Patient is reporting severe headache at this time. CIWA score most recent is a 7. Temperature 97.6, pulse 60, respiratory 14, blood pressure 152/88, pulse ox 99. Continue goal of maintaining blood pressure less than 180/100. Patient denies any chest pain or shortness of breath. Patient denies any nausea or vomiting. Physical Exam Vital signs: Vital Signs 01/25/18 12:00 01/25/18 14:00 01/25/18 16:00 Temperature 96.5 F L 97.4 F L Pulse Rate 45 L 57 L 64 Respiratory Rate 21 19 Blood Pressure 126/66 104/59 L Pulse Oximetry 100 99 01/25/18 18:01 01/25/18 20:00 01/26/18 00:00 Temperature 97.1 F L 98.3 F 97.7 F Pulse Rate 73 67 Respiratory Rate 16 18 18 Blood Pressure 136/70 100/63 120/73 Pulse Oximetry 99 99 99 01/26/18 04:00 01/26/18 08:00 Temperature 98 F 97.6 F Pulse Rate 57 L 60 Respiratory Rate 18 14 Blood Pressure 141/78 H 152/88 H Pulse Oximetry 99 99 Intake & Output 01/25/18 01/26/18 01/26/18 18:59 06:59 18:59 Intake Total 1420 / 1420 Balance 1420 / 1420 Weight 54.4 kg Intake: IV 50 / 50 Cleviprex Inj 25 mg In 50 ml @ 50 / 50 1 MG/HR 2 mls/hr IV.CONT TITRATE PRN Rx#:[id number] Oral 1370 / 1370 Other: # Voids 1 Date of Last Bowel Movement 01/25/18 01/25/18 # Bowel Movements 1 Narrative: General: Calm, alert Head: Atraumatic, normal. Eyes: Lateral arcus senilis. Neck: Supple, airway widely patent, no obstructive noises, no drooling. Lungs: Light wheezes, no obstruction to air movement, no crackles, comfortable respiratory pattern. Heart: Regular rate and rhythm, bradycardia at 58, no murmur rub, no JVD Abdomen: Soft, nondistended, no guarding, no peritoneal irritation, bowel sounds are present Extremities: Thin, warm, well-perfused. No edema. Neuro: Alert, cooperative, oriented 3. Conversant, speech mildly slurred. Understands words clearly. PERRLA, EOMs intact, tongue protrusion midline, shoulder shrug symmetrical, smile and grimace symmetrical, jaw clench symmetrical. Moves 4 limbs with right side 5 out of 5 strength, left side 4 out of 5 strength. Left side handgrip mildly weaker with 4 5 strength. Deep tendon reflexes absent at both knees, no clonus, toes downgoing to plantar stimulation. Heel to ankle performed adequately both sides. Finger to nose performed adequately with both hands. Results - Labs CBC & Chem 7: 01/25/18 14:00 Laboratory Results - last 24 hr 01/25/18 01/25/18 01/25/18 14:00 18:30 21:36 Sodium 144 Potassium 3.7 Chloride 107 Carbon Dioxide 28.7 Anion Gap 8 BUN 7 Creatinine 1.02 Estimated GFR 87 L POC Glucose 113 H 130 H Random Glucose 85 Calcium 8.6 Total Bilirubin 0.2 AST 14 L ALT 11 L Alkaline Phosphatase 101 Total Protein 6.6 Albumin 3.0 L Triglycerides 80 Cholesterol 139 LDL Cholesterol, Calc 62 HDL Cholesterol 61.5 H Cholesterol/HDL Ratio 2.26 01/26/18 10:06 Sodium Potassium Chloride Carbon Dioxide Anion Gap BUN Creatinine Estimated GFR POC Glucose 100 Random Glucose Calcium Total Bilirubin AST ALT Alkaline Phosphatase Total Protein Albumin Triglycerides Cholesterol LDL Cholesterol, Calc HDL Cholesterol Cholesterol/HDL Ratio - Imaging Impressions Head MRI 01/25/18 00:00 CONCLUSION: 1. 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 2. Susceptibility artifact right basal ganglia could be related to calcification or old hemorrhage. 3. No acute intracranial abnormality. Head CT 01/25/18 11:39 CONCLUSION: 1. Nonspecific white matter changes. 2. No acute hemorrhage . Assessment and Plan - Assessment (1) Acute ischemic stroke Code(s): I63.9 - Cerebral infarction, unspecified Status: Acute (2) Hypertension Code(s): I10 - Essential (primary) hypertension Status: Acute - Plan This 72-year-old right-handed man developed generalized weakness and loss of use of his left arm. 1. Ischemic stroke versus TIA versus hypertensive emergency -Patient improved following TPA treatment -Maintain blood pressure less than 180/100 -Continue long-term blood pressure control with an JOSE inhibitor -Neurology consulted, recommendations appreciated -Continue with neuro checks -Continue physical therapy -Continue OT -Repeat CT scan showed no intracranial hemorrhage 2. Reported alcohol abuse -Continue CIWA protocol DVT prophylaxis with SCDs GI prophylaxis with Pepcid Code Status: Full code Discharge Planning: Patient will likely require snf facility upon discharge. Case management working with this case. (2) Hypertension Qualifiers: Hypertension type: essential hypertension Qualified Code(s): I10 - Essential (primary) hypertension
--- NOTE | 2018-01-26 11:52 | P.PNNEU ---
Subjective Subjective Comments: Complains of headache generalized with mild photophobia phonophobia. States that it for years until his get migraines interested in medication denies any chest pain dyspnea focal weakness or any language disturbance Active Medications: Active Medications Acetaminophen (Tylenol) 650 mg PO Q6H PRN PRN Reason: PAIN 1-10 AND/OR FEVER >101F Last Admin: 01/26/18 09:55 Dose: 650 mg Al Hydroxide/Mg Hydroxide (Milk Of Magnesia Liq) 30 ml PO Q12H PRN PRN Reason: Mild Constipation Albuterol (Duoneb Neb (Prn)) 1 ampul NEB Q2HR NEB PRN PRN Reason: WHEEZING Bisacodyl (Dulcolax Supp) 10 mg RECTAL DAILY PRN PRN Reason: SEVERE CONSITIPATION Chlorhexidine Gluconate (Chlorhexidine 2% Cloth) 3 pack TOPICAL DAILY@0400 [facility] Stop: 01/30/18 03:59 Last Admin: 01/26/18 07:09 Dose: Not Given Chlorhexidine Gluconate (Chlorhexidine 2% Cloth) 3 pack TOPICAL DAILY@0400 PRN PRN Reason: Extra cloth needed Stop: 01/30/18 03:59 Clonidine HCl (Catapres) 0.1 mg PO Q6HR PRN PRN Reason: SBP > 160 Famotidine (Pepcid) 20 mg PO BID [facility] Last Admin: 01/26/18 09:56 Dose: 20 mg Flumazenil (Romazecon Inj) 0.2 mg IV.PUSH Q1M PRN PRN Reason: OVERSEDATION Haloperidol Lactate (Haldol Inj) 1 mg IV.PUSH Q15M PRN PRN Reason: for severe agitation Hydralazine HCl (Apresoline) 50 mg PO TID [facility] Last Admin: 01/26/18 09:56 Dose: 50 mg Clevidipine (Cleviprex Inj) 25 mg in 50 mls @ 2 mls/hr IV.CONT TITRATE PRN; Protocol PRN Reason: Per protocol Last Titration: 01/25/18 16:58 Dose: Infused Lactulose (Lactulose Liq) 30 ml PO DAILY PRN PRN Reason: SEVERE CONSITIPATION Lisinopril (Prinivil) 5 mg PO BID [facility] Last Admin: 01/26/18 09:55 Dose: 5 mg Lorazepam (Ativan) 1 mg PO Q4H PRN PRN Reason: for CIWA 8-10 Last Admin: 01/26/18 03:37 Dose: 1 mg Lorazepam (Ativan) 2 mg PO Q2H PRN PRN Reason: for CIWA 11-14 Lorazepam (Ativan Inj) 2 mg IV.PUSH Q1H PRN PRN Reason: for CIWA 15-20 Lorazepam (Ativan Inj) 2 mg IV.PUSH Q15M PRN PRN Reason: for CIWA > 20 Lorazepam (Ativan Inj) 1 mg IV.PUSH Q4H PRN PRN Reason: for CIWA 8-10 Lorazepam (Ativan Inj) 2 mg IV.PUSH Q2H PRN PRN Reason: for CIWA 11-14 Morphine Sulfate (Morphine Inj) 2 mg IV.PUSH Q4H PRN PRN Reason: BREAKTHROUGH PAIN Ondansetron HCl (Zofran Inj) 4 mg IV.PUSH Q6H PRN PRN Reason: NAUSEA OR VOMITING Senna/Docusate Sodium (Zoila-Colace) 1 tab PO BID [facility] Last Admin: 01/26/18 09:57 Dose: 1 tab Sennosides (Senokot) 17.2 mg PO Q12H PRN PRN Reason: Moderate Constipation Sodium Chloride (Ns Flush) 2 ml IV.FLUSH BID [facility] Last Admin: 01/26/18 09:57 Dose: 2 ml Sodium Chloride (Ns Flush) 2 ml IV.FLUSH PRN PRN PRN Reason: FLUSH AFTER USING IV ACCESS Allergies/Adverse Reactions: Allergies Allergy/AdvReac Type Severity Reaction Status Date / Time *MDRO Multi-Drug Resistant AdvReac Unknown Uncoded 06/23/17 05:08 Organism Review of Systems All other systems reviewed negative except as stated in HPI Physical Exam Vital signs: Vital Signs 01/25/18 12:00 01/25/18 14:00 01/25/18 16:00 Temperature 96.5 F L 97.4 F L Pulse Rate 45 L 57 L 64 Respiratory Rate 21 19 Blood Pressure 126/66 104/59 L Pulse Oximetry 100 99 01/25/18 18:01 01/25/18 20:00 01/26/18 00:00 Temperature 97.1 F L 98.3 F 97.7 F Pulse Rate 73 67 Respiratory Rate 16 18 18 Blood Pressure 136/70 100/63 120/73 Pulse Oximetry 99 99 99 01/26/18 04:00 01/26/18 08:00 Temperature 98 F 97.6 F Pulse Rate 57 L 60 Respiratory Rate 18 14 Blood Pressure 141/78 H 152/88 H Pulse Oximetry 99 99 Intake & Output 01/25/18 01/26/18 01/26/18 18:59 06:59 18:59 Intake Total 1420 / 1420 Balance 1420 / 1420 Weight 54.4 kg Intake: IV 50 / 50 Cleviprex Inj 25 mg In 50 ml @ 50 / 50 1 MG/HR 2 mls/hr IV.CONT TITRATE PRN Rx#:[id number] Oral 1370 / 1370 Other: # Voids 1 Date of Last Bowel Movement 01/25/18 01/25/18 # Bowel Movements 1 Narrative: General: Calm, alert Head: Atraumatic, normal. Eyes: Right Diamond tropia Neck: Supple, airway widely patent, no obstructive noises, no drooling. Lungs: No accessory muscle use Heart: Regular rate and rhythm, Abdomen: Soft, nondistended, no guarding, Extremities: Thin, warm, well-perfused. No edema. Neuro: Alert, cooperative, oriented 3. Clear speech no aphasia strength 5 out of 5 upper lower limbs NIH stroke scale score 0 - Constitutional no acute distress - Routine HEENT Exam Head: Present: normocephalic Eye: Present: EOMI Objective Laboratory Results - last 24 hr 01/25/18 01/25/18 01/25/18 14:00 18:30 21:36 Sodium 144 Potassium 3.7 Chloride 107 Carbon Dioxide 28.7 Anion Gap 8 BUN 7 Creatinine 1.02 Estimated GFR 87 L POC Glucose 113 H 130 H Random Glucose 85 Calcium 8.6 Total Bilirubin 0.2 AST 14 L ALT 11 L Alkaline Phosphatase 101 Total Protein 6.6 Albumin 3.0 L Triglycerides 80 Cholesterol 139 LDL Cholesterol, Calc 62 HDL Cholesterol 61.5 H Cholesterol/HDL Ratio 2.26 01/26/18 10:06 Sodium Potassium Chloride Carbon Dioxide Anion Gap BUN Creatinine Estimated GFR POC Glucose 100 Random Glucose Calcium Total Bilirubin AST ALT Alkaline Phosphatase Total Protein Albumin Triglycerides Cholesterol LDL Cholesterol, Calc HDL Cholesterol Cholesterol/HDL Ratio Review/Management - Diagnosis (1) Migraine Code(s): G43.909 - Migraine, unspecified, not intractable, without status migrainosus Status: Acute Current Visit: Yes (2) Acute ischemic stroke Code(s): I63.9 - Cerebral infarction, unspecified Status: Acute Current Visit: Yes (3) Hypertension Code(s): I10 - Essential (primary) hypertension Status: Acute Current Visit : Yes - Review/Management Plan: Suspicious for right hemispheric stroke versus hypertensive encephalopathy. Etiologies include chronic hypertension small vessel mediated. CTA brain carotids do not reveal any significant vaso-occlusive disease. MRI brain scan negative for acute stroke. Lipids in range with elevated HDL Recommendations Fioricet as needed for headache Start Depakote daily to reduce intensity frequency of migraines Aspirin Blood pressure control Discharge planning from neurologic standpoint outpatient follow-up (3) Hypertension Qualifiers: Hypertension type: essential hypertension Qualified Code(s): I10 - Essential (primary) hypertension
[2018-01-26] MEDS: Morphine Inj 4 MG/ML Vial IV.PUSH PRN ×2 (14:50→22:13)
--- NOTE | 2018-01-26 15:04 | ECHRPT ---
Indication: CVA/TIA CONCLUSIONS Normal left ventricular size. Wall thickness is measured at the upper limits of normal. The left ventricular systolic function is hyperdynamic with an estimated ejection fraction in the ra nge of 65- 70%. Mild mitral valve regurgitation. Mitral calcification along the anterior leaflet of the mitral valve. Aortic valve sclerosis is present. Mild aortic valve regurgitation. There is mild to moderate tricuspid valve regurgitation. The estimated pulmonary arterial pressure is 42.7 mmHg. BP: / HR: Rhythm: Sinus MEASUREMENTS (Male / Female) Normal Values Technical Quality:Fair 2D ECHO LV Diastolic Diameter PLAX 3.9 cm 4.2 - 5.9 / 3.9 - 5.3 cm LV Systolic Diameter PLAX 2.5 cm IVS Diastolic Thickness 1.0 cm 0.6 - 1.0 / 0.6 - 0.9 cm LVPW Diastolic Thickness 1.0 cm 0.6 - 1.0 / 0.6 - 0.9 cm LV Relative Wall Thickness 0.5 RV Internal Dim ED PLAX 1.9 cm LVOT Diameter 1.3 cm Aortic Root Diameter 3.1 cm LA Systolic Diameter LX 2.1 cm 3.0 - 4.0 / 2.7 - 3.8 cm M-MODE AV Cusp Separation MM 2.4 cm DOPPLER AV Peak Velocity 119.0 cm/s AV Peak Gradient 5.7 mmHg AV Mean Gradient 3.5 mmHg AV Velocity Time Integral 20.9 cm LVOT Peak Velocity 99.3 cm/s LVOT Peak Gradient 3.9 mmHg LVOT Velocity Time Integral 18.3 cm AV Area Cont Eq vti 1.2 cm AV Area Cont Eq pk 1.1 cm LV E' Lateral Velocity 14.0 cm/s LV E' Septal Velocity 8.3 cm/s TR Peak Velocity 286.0 cm/s TR Peak Gradient 32.7 mmHg Right Atrial Pressure 10.0 mmHg Pulmonary Artery Systolic Pressu 42.7 mmHg Right Ventricular Systolic Press 42.7 mmHg PV Peak Velocity 79.7 cm/s PV Peak Gradient 2.5 mmHg FINDINGS LEFT VENTRICLE Normal left ventricular size. Wall thickness is measured at the upper limits of normal. The left ventricular systolic function is hyperdynamic with an estimated ejection fraction in the ra nge of 65- 70%. RIGHT VENTRICLE Normal right ventricular size and systolic function. LEFT ATRIUM The left atrial size is normal. RIGHT ATRIUM The right atrial size is normal. ATRIAL SEPTUM No atrial level shunt is demonstrated by color flow Doppler interrogation. AORTA The aortic root and proximal ascending aorta are normal in size on limited imaging. MITRAL VALVE Mild mitral valve regurgitation. AORTIC VALVE Aortic valve sclerosis is present. Trileaflet aortic valve. Mild aortic valve regurgitation. TRICUSPID VALVE There is mild to moderate tricuspid valve regurgitation. The estimated pulmonary arterial pressure is 42.7 mmHg. PULMONARY VALVE No pulmonary valve regurgitation or stenosis. VESSELS The inferior vena cava is normal in size. PERICARDIUM No pericardial effusion. Mookie Bose MD (Electronically Signed) Final Date:26 January 2018 15:02
[2018-01-26] MEDS: Divalproex 250 MG ER Tablet PO SCH ×2 (16:01→22:14)
[2018-01-26] MEDS: Butalbital/APAP/Caff 50/325/40 MG Tablet PO PRN (18:24)
[2018-01-27] MEDS: Chlorhexidine Gluconate 2% 1 Pack (2 Cloths) TOPICAL SCH (05:27)
[2018-01-27] MEDS: Butalbital/APAP/Caff 50/325/40 MG Tablet PO PRN (05:27)
[2018-01-27 05:58] LABS: Hematocrit 35.9 % (39.0-51.0); Hemoglobin 12.1 gm/dL (13.0-17.0); Mean Corpuscular HGB Conc 33.8 % (32.0-36.0); Mean Corpuscular Hemoglobin 33.4 pg (27.0-34.0); Mean Corpuscular Volume 98.7 fL (80.0-100.0); Mean Platelet Volume 7.9 fL (7.0-11.0); Platelet Count 311 th/mm3 (150-450); Red Blood Count 3.64 mil/mm3 (4.50-5.90); Red Cell Distribution Width 16.5 % (11.6-17.2); White Blood Count 5.1 th/mm3 (4.0-11.0)
[2018-01-27 06:34] LABS: Alanine Aminotransferase 10 U/L (12-78); Albumin 2.7 g/dL (3.4-5.0); Anion Gap 6 meq/L (5-15); Aspartate Aminotransferase 10 U/L (15-37); Blood Urea Nitrogen 8 mg/dL (7-18); Calcium 8.9 mg/dL (8.5-10.1); Carbon Dioxide 30.6 meq/L (21.0-32.0); Chloride 103 meq/L (98-107); Glomerular Filtration Rate Greater Than 89 mL/min (>89); Glucose,Random 82 mg/dL (74-106); Potassium 3.9 meq/L (3.5-5.1); Sodium 140 meq/L (136-145)
[2018-01-27 06:37] LABS: Alkaline Phosphatase 84 U/L (45-117); Total Protein 6.1 g/dL (6.4-8.2)
[2018-01-27] MEDS: Famotidine 20 MG Tablet PO SCH ×2 (08:03→21:13)
[2018-01-27] MEDS: Lisinopril 5 MG Tablet PO SCH ×2 (08:03→21:13)
[2018-01-27] MEDS: Divalproex 250 MG ER Tablet PO SCH ×2 (08:03→21:13)
[2018-01-27] MEDS: hydrALAZINE 50 MG Tablet PO SCH ×3 (08:03→17:44)
[2018-01-27] MEDS: Morphine Inj 4 MG/ML Vial IV.PUSH PRN (08:04)
[2018-01-27] MEDS: Senna/Docusate Sodium 8.6/50 MG Tablet PO SCH ×2 (08:04→21:14)
--- NOTE | 2018-01-27 08:40 | P.PNNEU ---
Subjective Subjective Comments: Complains of frontal headache right retro-orbital, denies any temporal pain percentage eye claudication fever night sweats states his weakness is improved Active Medications: Active Medications Acetaminophen (Tylenol) 650 mg PO Q6H PRN PRN Reason: PAIN 1-10 AND/OR FEVER >101F Last Admin: 01/26/18 09:55 Dose: 650 mg Acetaminophen/Butalbital/Caffeine (Fioricet 50-325-40) 1 tab PO Q8H PRN PRN Reason: HEADACHE Last Admin: 01/27/18 05:27 Dose: 1 tab Al Hydroxide/Mg Hydroxide (Milk Of Deshawn Ni) 30 ml PO Q12H PRN PRN Reason: Mild Constipation Albuterol (Duoneb Neb (Prn)) 1 ampul NEB Q2HR NEB PRN PRN Reason: WHEEZING Aspirin (Ecotrin) 325 mg PO DAILY [facility] Last Admin: 01/27/18 08:03 Dose: 325 mg Bisacodyl (Dulcolax Supp) 10 mg RECTAL DAILY PRN PRN Reason: SEVERE CONSITIPATION Chlorhexidine Gluconate (Chlorhexidine 2% Cloth) 3 pack TOPICAL DAILY@0400 [facility] Stop: 01/30/18 03:59 Last Admin: 01/27/18 05:27 Dose: Not Given Chlorhexidine Gluconate (Chlorhexidine 2% Cloth) 3 pack TOPICAL DAILY@0400 PRN PRN Reason: Extra cloth needed Stop: 01/30/18 03:59 Clonidine HCl (Catapres) 0.1 mg PO Q6HR PRN PRN Reason: SBP > 160 Last Admin: 01/27/18 08:03 Dose: 0.1 mg Divalproex Sodium (Depakote Er) 250 mg PO BID [facility] Last Admin: 01/27/18 08:03 Dose: 250 mg Famotidine (Pepcid) 20 mg PO BID [facility] Last Admin: 01/27/18 08:03 Dose: 20 mg Flumazenil (Romazecon Inj) 0.2 mg IV.PUSH Q1M PRN PRN Reason: OVERSEDATION Haloperidol Lactate (Haldol Inj) 1 mg IV.PUSH Q15M PRN PRN Reason: for severe agitation Hydralazine HCl (Apresoline) 50 mg PO TID [facility] Last Admin: 01/27/18 08:03 Dose: 50 mg Clevidipine (Cleviprex Inj) 25 mg in 50 mls @ 2 mls/hr IV.CONT TITRATE PRN; Protocol PRN Reason: Per protocol Last Titration: 01/25/18 16:58 Dose: Infused Lactulose (Lactulose Liq) 30 ml PO DAILY PRN PRN Reason: SEVERE CONSITIPATION Lisinopril (Prinivil) 5 mg PO BID [facility] Last Admin: 01/27/18 08:03 Dose: 5 mg Lorazepam (Ativan) 1 mg PO Q4H PRN PRN Reason: for CIWA 8-10 Last Admin: 01/26/18 03:37 Dose: 1 mg Lorazepam (Ativan) 2 mg PO Q2H PRN PRN Reason: for CIWA 11-14 Lorazepam (Ativan Inj) 2 mg IV.PUSH Q1H PRN PRN Reason: for CIWA 15-20 Lorazepam (Ativan Inj) 2 mg IV.PUSH Q15M PRN PRN Reason: for CIWA > 20 Lorazepam (Ativan Inj) 1 mg IV.PUSH Q4H PRN PRN Reason: for CIWA 8-10 Lorazepam (Ativan Inj) 2 mg IV.PUSH Q2H PRN PRN Reason: for CIWA 11-14 Morphine Sulfate (Morphine Inj) 2 mg IV.PUSH Q4H PRN PRN Reason: BREAKTHROUGH PAIN Last Admin: 01/27/18 08:04 Dose: 2 mg Ondansetron HCl (Zofran Inj) 4 mg IV.PUSH Q6H PRN PRN Reason: NAUSEA OR VOMITING Senna/Docusate Sodium (Zoila-Colace) 1 tab PO BID [facility] Last Admin: 01/27/18 08:04 Dose: 1 tab Sennosides (Senokot) 17.2 mg PO Q12H PRN PRN Reason: Moderate Constipation Sodium Chloride (Ns Flush) 2 ml IV.FLUSH BID [facility] Last Admin: 01/27/18 08:04 Dose: 2 ml Sodium Chloride (Ns Flush) 2 ml IV.FLUSH PRN PRN PRN Reason: FLUSH AFTER USING IV ACCESS Allergies/Adverse Reactions: Allergies Allergy/AdvReac Type Severity Reaction Status Date / Time *MDRO Multi-Drug Resistant AdvReac Unknown Uncoded 06/23/17 05:08 Organism Review of Systems All other systems reviewed negative except as stated in HPI Physical Exam Vital signs: Vital Signs 01/26/18 12:00 01/26/18 16:00 01/26/18 20:00 Temperature 98.0 F 97.5 F L 98 F Pulse Rate 78 69 85 Respiratory Rate 16 14 18 Blood Pressure 104/64 139/75 142/82 H Pulse Oximetry 99 97 98 01/26/18 21:56 01/27/18 00:00 01/27/18 04:00 Temperature 98.2 F 98.2 F Pulse Rate 87 61 Respiratory Rate 18 18 Blood Pressure 138/79 159/89 H Pulse Oximetry 99 97 97 01/27/18 08:08 Temperature Pulse Rate Respiratory Rate 16 Blood Pressure Pulse Oximetry Intake & Output 01/26/18 01/27/18 01/27/18 18:59 06:59 18:59 Weight 54.4 kg Other: # Voids 3 Date of Last Bowel Movement 01/25/18 01/25/18 Narrative: General: Calm, alert Head: Atraumatic, normal. Eyes: Right esotropia Neck: Supple, airway widely patent, no obstructive noises, no drooling. Lungs: No accessory muscle use Heart: Regular rate and rhythm, Abdomen: Soft, nondistended, no guarding, Extremities: Thin, warm, well-perfused. No edema. Neuro: Alert, cooperative, oriented 3. Right esotropia, neck supple, OU 3 mm sluggish no temporal tenderness clear speech no aphasia strength 5 out of 5 upper lower limbs NIH stroke scale score 0 - Constitutional no acute distress - Routine HEENT Exam Head: Present: normocephalic Eye: Present: EOMI Objective Laboratory Results - last 24 hr 01/26/18 01/27/18 01/27/18 10:06 04:51 04:52 WBC 5.1 RBC 3.64 L Hgb 12.1 L Hct 35.9 L MCV 98.7 MCH 33.4 MCHC 33.8 RDW 16.5 Plt Count 311 MPV 7.9 Sodium 140 Potassium 3.9 Chloride 103 Carbon Dioxide 30.6 Anion Gap 6 BUN 8 Creatinine 0.87 Estimated GFR Greater than 89 POC Glucose 100 Random Glucose 82 Calcium 8.9 Total Bilirubin 0.2 AST 10 L ALT 10 L Alkaline Phosphatase 84 Total Protein 6.1 L Albumin 2.7 L Review/Management - Diagnosis (1) Migraine Code(s): G43.909 - Migraine, unspecified, not intractable, without status migrainosus Status: Acute Current Visit: Yes (2) Acute ischemic stroke Code(s): I63.9 - Cerebral infarction, unspecified Status: Acute Current Visit: Yes (3) Hypertension Code(s): I10 - Essential (primary) hypertension Status: Acute Current Visit : Yes - Review/Management Plan: Suspicious for right hemispheric stroke versus hypertensive encephalopathy. Etiologies include chronic hypertension small vessel mediated. CTA brain carotids do not reveal any significant vaso-occlusive disease. MRI brain scan negative for acute stroke. Lipids in range with elevated HDL Recommendations Trial IV Solu-Medrol x1 Check MRV brain Check ESR CRP PT Pain control blood pressure control (3) Hypertension Qualifiers: Hypertension type: essential hypertension Qualified Code(s): I10 - Essential (primary) hypertension
[2018-01-27] MEDS ORDERED: MethylPREDNISolone Sod Suc Inj 250 MG in Sodium Chlor 0.9% Inj 100 ML IV.SIG ONE (09:30)
[2018-01-27] MEDS ORDERED: Gadobutrol PF 10 MMOL/10 ML Vial (for RAD) IV.SIG ONE (12:15)
--- NOTE | 2018-01-27 13:51 | P.PNIM ---
Subjective Interval history: Patient seen and examined this morning. Temperature 97.2, respiratory 18, blood pressure 164/93 patient reports that Fioricet has helped his headache tremendously. He understands the plan at this time is to await the MRV brain scan. He has no complaints or issues at this time. Denies any chest pain shortness of breath. Denies any nausea or vomiting. Physical Exam Vital signs: Vital Signs 01/26/18 16:00 01/26/18 20:00 01/26/18 21:56 Temperature 97.5 F L 98 F Pulse Rate 69 85 Respiratory Rate 14 18 Blood Pressure 139/75 142/82 H Pulse Oximetry 97 98 99 01/27/18 00:00 01/27/18 04:00 01/27/18 08:00 Temperature 98.2 F 98.2 F 97.9 F Pulse Rate 87 61 62 Respiratory Rate 18 18 18 Blood Pressure 138/79 159/89 H 164/93 H Pulse Oximetry 97 97 98 01/27/18 08:08 01/27/18 09:22 01/27/18 12:00 Temperature 97.9 F Pulse Rate 62 Respiratory Rate 16 18 Blood Pressure 164/93 H Pulse Oximetry 96 98 Intake & Output 01/26/18 01/27/18 01/27/18 18:59 06:59 18:59 Intake Total 104 / 104 Balance 104 / 104 Weight 54.4 kg Intake: IV 104 / 104 SoluMEDROL Inj 250 MG In NS Inj 104 / 104 100 ML @ 200 mls/hr IV.SIG ONCE ONE Rx#:[id number] Other: # Voids 3 Date of Last Bowel Movement 01/25/18 01/25/18 Narrative: General: Calm, alert Head: Atraumatic, normal. Eyes: Right esotropia Neck: Supple, airway widely patent, no obstructive noises, no drooling. Lungs: No accessory muscle use Heart: Regular rate and rhythm, Abdomen: Soft, nondistended, no guarding, Extremities: Thin, warm, well-perfused. No edema. Neuro: Alert, cooperative, oriented 3. Right esotropia, neck supple, OU 3 mm sluggish no temporal tenderness clear speech no aphasia strength 5 out of 5 upper lower limbs NIH stroke scale score 0 Results - Labs CBC & Chem 7: 01/27/18 04:52 01/27/18 04:51 Laboratory Results - last 24 hr 01/27/18 01/27/18 01/27/18 04:51 04:51 04:51 WBC RBC Hgb Hct MCV MCH MCHC RDW Plt Count MPV ESR 25 H Sodium 140 Potassium 3.9 Chloride 103 Carbon Dioxide 30.6 Anion Gap 6 BUN 8 Creatinine 0.87 Estimated GFR Greater than 89 Random Glucose 82 Calcium 8.9 Total Bilirubin 0.2 AST 10 L ALT 10 L Alkaline Phosphatase 84 C-Reactive Protein 2.30 H Total Protein 6.1 L Albumin 2.7 L 01/27/18 04:52 WBC 5.1 RBC 3.64 L Hgb 12.1 L Hct 35.9 L MCV 98.7 MCH 33.4 MCHC 33.8 RDW 16.5 Plt Count 311 MPV 7.9 ESR Sodium Potassium Chloride Carbon Dioxide Anion Gap BUN Creatinine Estimated GFR Random Glucose Calcium Total Bilirubin AST ALT Alkaline Phosphatase C-Reactive Protein Total Protein Albumin Assessment and Plan - Assessment (1) Acute ischemic stroke Code(s): I63.9 - Cerebral infarction, unspecified Status: Acute (2) Hypertension Code(s): I10 - Essential (primary) hypertension Status: Acute - Plan This 72-year-old right-handed man developed generalized weakness and loss of use of his left arm. 1. Ischemic stroke versus TIA versus hypertensive emergency -Patient improved following TPA treatment -Maintain blood pressure less than 180/100 -Continue long-term blood pressure control with an JOSE inhibitor -Neurology consulted, recommendations appreciated -Continue with neuro checks -Continue physical therapy -Continue OT -Repeat CT scan showed no intracranial hemorrhage -MRV brain pending 2. Reported alcohol abuse -Continue CIWA protocol DVT prophylaxis with SCDs GI prophylaxis with Pepcid Code Status: Full code Discharge Planning: Patient will require home with home health. Case management working with this case. (2) Hypertension Qualifiers: Hypertension type: essential hypertension Qualified Code(s): I10 - Essential (primary) hypertension
--- NOTE | 2018-01-27 14:03 | MR ---
EXAM DATE: 01/27/2018 11:55 AM EDT AGE/SEX: 72 years / Male INDICATIONS: . Post TPA cephalgia. CLINICAL DATA: This is the patient's subsequent encounter. Patient reports that signs and symptoms h ave been present for 3 days and indicates a pain score of 3/10. MEDICAL/SURGICAL HISTORY: . CVA Tonsillectomy. lumbar surgery COMPARISON: [facility] [place] HEAD W/O CONTRAST, 01/25/2018. . TECHNIQUE: MR cerebral venography is performed without and with 10 ml Gadavist (gadobutrol) contrast (single exam dose). Source images, 3D volume MIP, and sliding thin slab MIP reconstructions were re viewed. FINDINGS: There is excellent visualization of the major intracranial arteries out to the second-order branch ve ssels. There is no evidence for aneurysm, vessel truncation or stenosis, and no evidence for vascula r malformation. CONCLUSION: 1. Deep and superficial venous system appears widely patent. Electronically signed by: Jerry Dong MD 01/27/2018 2:01 PM EDT
[2018-01-28] MEDS: Butalbital/APAP/Caff 50/325/40 MG Tablet PO PRN ×2 (00:15→08:26)
[2018-01-28] MEDS: Chlorhexidine Gluconate 2% 1 Pack (2 Cloths) TOPICAL SCH (04:40)
--- NOTE | 2018-01-28 08:19 | P.PNNEU ---
Subjective Subjective Comments: Headache significantly improved; feels steroids help. Denies any focal weakness vision loss language disturbance chest pain or dyspnea. Wants to go home today Active Medications: Active Medications Acetaminophen (Tylenol) 650 mg PO Q6H PRN PRN Reason: PAIN 1-10 AND/OR FEVER >101F Last Admin: 01/26/18 09:55 Dose: 650 mg Acetaminophen/Butalbital/Caffeine (Fioricet 50-325-40) 1 tab PO Q8H PRN PRN Reason: HEADACHE Last Admin: 01/28/18 00:15 Dose: 1 tab Al Hydroxide/Mg Hydroxide (Milk Of Deshawn Ni) 30 ml PO Q12H PRN PRN Reason: Mild Constipation Albuterol (Duoneb Neb (Prn)) 1 ampul NEB Q2HR NEB PRN PRN Reason: WHEEZING Aspirin (Ecotrin) 325 mg PO DAILY [facility] Last Admin: 01/27/18 08:03 Dose: 325 mg Bisacodyl (Dulcolax Supp) 10 mg RECTAL DAILY PRN PRN Reason: SEVERE CONSITIPATION Chlorhexidine Gluconate (Chlorhexidine 2% Cloth) 3 pack TOPICAL DAILY@0400 [facility] Stop: 01/30/18 03:59 Last Admin: 01/28/18 04:40 Dose: Not Given Chlorhexidine Gluconate (Chlorhexidine 2% Cloth) 3 pack TOPICAL DAILY@0400 PRN PRN Reason: Extra cloth needed Stop: 01/30/18 03:59 Clonidine HCl (Catapres) 0.1 mg PO Q6HR PRN PRN Reason: SBP > 160 Last Admin: 01/28/18 00:11 Dose: 0.1 mg Divalproex Sodium (Depakote Er) 250 mg PO BID [facility] Last Admin: 01/27/18 21:13 Dose: 250 mg Famotidine (Pepcid) 20 mg PO BID [facility] Last Admin: 01/27/18 21:13 Dose: 20 mg Flumazenil (Romazecon Inj) 0.2 mg IV.PUSH Q1M PRN PRN Reason: OVERSEDATION Haloperidol Lactate (Haldol Inj) 1 mg IV.PUSH Q15M PRN PRN Reason: for severe agitation Hydralazine HCl (Apresoline) 50 mg PO TID [facility] Last Admin: 01/27/18 17:44 Dose: 50 mg Clevidipine (Cleviprex Inj) 25 mg in 50 mls @ 2 mls/hr IV.CONT TITRATE PRN; Protocol PRN Reason: Per protocol Last Titration: 01/25/18 16:58 Dose: Infused Lactulose (Lactulose Liq) 30 ml PO DAILY PRN PRN Reason: SEVERE CONSITIPATION Lisinopril (Prinivil) 5 mg PO BID [facility] Last Admin: 01/27/18 21:13 Dose: 5 mg Lorazepam (Ativan) 1 mg PO Q4H PRN PRN Reason: for CIWA 8-10 Last Admin: 01/26/18 03:37 Dose: 1 mg Lorazepam (Ativan) 2 mg PO Q2H PRN PRN Reason: for CIWA 11-14 Lorazepam (Ativan Inj) 2 mg IV.PUSH Q1H PRN PRN Reason: for CIWA 15-20 Lorazepam (Ativan Inj) 2 mg IV.PUSH Q15M PRN PRN Reason: for CIWA > 20 Lorazepam (Ativan Inj) 1 mg IV.PUSH Q4H PRN PRN Reason: for CIWA 8-10 Lorazepam (Ativan Inj) 2 mg IV.PUSH Q2H PRN PRN Reason: for CIWA 11-14 Morphine Sulfate (Morphine Inj) 2 mg IV.PUSH Q4H PRN PRN Reason: BREAKTHROUGH PAIN Last Admin: 01/27/18 08:04 Dose: 2 mg Ondansetron HCl (Zofran Inj) 4 mg IV.PUSH Q6H PRN PRN Reason: NAUSEA OR VOMITING Senna/Docusate Sodium (Zoila-Colace) 1 tab PO BID [facility] Last Admin: 01/27/18 21:14 Dose: 1 tab Sennosides (Senokot) 17.2 mg PO Q12H PRN PRN Reason: Moderate Constipation Sodium Chloride (Ns Flush) 2 ml IV.FLUSH BID [facility] Last Admin: 01/27/18 21:14 Dose: 2 ml Sodium Chloride (Ns Flush) 2 ml IV.FLUSH PRN PRN PRN Reason: FLUSH AFTER USING IV ACCESS Allergies/Adverse Reactions: Allergies Allergy/AdvReac Type Severity Reaction Status Date / Time *MDRO Multi-Drug Resistant AdvReac Unknown Uncoded 06/23/17 05:08 Organism Review of Systems All other systems reviewed negative except as stated in HPI Physical Exam Vital signs: Vital Signs 01/27/18 09:22 01/27/18 12:00 01/27/18 16:00 Temperature 97.9 F 97.4 F L Pulse Rate 62 92 H Respiratory Rate 18 18 Blood Pressure 164/93 H 119/84 Pulse Oximetry 96 98 99 01/27/18 20:00 01/27/18 21:17 01/27/18 23:59 Temperature 98.6 F 98.4 F Pulse Rate 79 88 Respiratory Rate 18 18 Blood Pressure 124/77 170/83 H Pulse Oximetry 95 97 96 01/28/18 01:32 01/28/18 02:09 01/28/18 04:00 Temperature 98.2 F Pulse Rate 80 69 Respiratory Rate 18 18 Blood Pressure 148/76 H 116/77 Pulse Oximetry 97 Intake & Output 01/27/18 01/28/18 01/28/18 18:59 06:59 18:59 Intake Total 104 / 104 Balance 104 / 104 Weight 60.6 kg Intake: IV 104 / 104 SoluMEDROL Inj 250 MG In NS Inj 104 / 104 100 ML @ 200 mls/hr IV.SIG ONCE ONE Rx#:[id number] Other: # Voids 2 Date of Last Bowel Movement 01/27/18 Narrative: General: Calm, alert Head: Atraumatic, normal. Eyes: Right esotropia Neck: Supple, airway widely patent, Lungs: No accessory muscle use Heart: Regular rate and rhythm, Abdomen: Soft, nondistended, no guarding, Extremities: Thin, warm, well-perfused. No edema. Neuro: Alert, cooperative, oriented 3. Right esotropia, neck supple, OU 3 mm sluggish no temporal tenderness, mild temporal bilateral atrophy, neck supple clear speech no aphasia strength 5 out of 5 upper lower limbs NIH stroke scale score 0 - Constitutional no acute distress - Routine HEENT Exam Head: Present: normocephalic Eye: Present: EOMI Objective Laboratory Results - last 24 hr 01/27/18 01/27/18 04:51 04:51 ESR 25 H C-Reactive Protein 2.30 H Review/Management - Diagnosis (1) Migraine Code(s): G43.909 - Migraine, unspecified, not intractable, without status migrainosus Status: Acute Current Visit: Yes (2) Acute ischemic stroke Code(s): I63.9 - Cerebral infarction, unspecified Status: Acute Current Visit: Yes (3) Hypertension Code(s): I10 - Essential (primary) hypertension Status: Acute Current Visit : Yes - Review/Management Plan: status post TPA. Doing well Suspicious for right hemispheric stroke versus hypertensive encephalopathy. Etiologies include chronic hypertension small vessel mediated. CTA brain carotids do not reveal any significant vaso-occlusive disease. MRI brain scan negative for acute stroke. Lipids in range with elevated HDL Recommendations Mildly elevated ESR, CRP. There is a potentially could have giant cell arteritis. Favorable response to IV steroids. Declines temporal artery biopsy We will treat with oral prednisone 30 mg p.o. daily and titrate by 5 mg every 1- 2 weeks based on clinical response and ESR CRP [facility] Can also go with Depakote Can follow-up with us in the outpatient setting in 1-2 weeks Can be discharged from our standpoint (3) Hypertension Qualifiers: Hypertension type: essential hypertension Qualified Code(s): I10 - Essential (primary) hypertension
[2018-01-28] MEDS: Lisinopril 5 MG Tablet PO SCH (08:23)
[2018-01-28] MEDS: hydrALAZINE 50 MG Tablet PO SCH (08:23)
[2018-01-28] MEDS: Divalproex 250 MG ER Tablet PO SCH (08:23)
[2018-01-28] MEDS: Famotidine 20 MG Tablet PO SCH (08:23)
[2018-01-28] MEDS: Senna/Docusate Sodium 8.6/50 MG Tablet PO SCH (08:24)
[2018-01-28] MEDS ORDERED: predniSONE 10 MG Tablet PO SCH (09:00)
--- NOTE | 2018-01-28 11:10 | P.PNIM ---
Subjective Interval history: Patient seen and examined this morning. Afebrile vital signs stable. No acute events overnight. Patient has been cleared by neurology for discharge home. Excited to go home at this time. Physical Exam Vital signs: Vital Signs 01/27/18 12:00 01/27/18 16:00 01/27/18 20:00 Temperature 97.9 F 97.4 F L 98.6 F Pulse Rate 62 92 H 79 Respiratory Rate 18 18 18 Blood Pressure 164/93 H 119/84 124/77 Pulse Oximetry 98 99 95 01/27/18 21:17 01/27/18 23:59 01/28/18 01:32 Temperature 98.4 F Pulse Rate 88 80 Respiratory Rate 18 Blood Pressure 170/83 H 148/76 H Pulse Oximetry 97 96 01/28/18 02:09 01/28/18 04:00 01/28/18 07:00 Temperature 98.2 F Pulse Rate 69 Respiratory Rate 18 18 12 Blood Pressure 116/77 Pulse Oximetry 97 01/28/18 08:00 Temperature 97.6 F Pulse Rate 64 Respiratory Rate 20 Blood Pressure 138/62 Pulse Oximetry 98 Intake & Output 01/27/18 01/28/18 01/28/18 18:59 06:59 18:59 Intake Total 104 / 104 Balance 104 / 104 Weight 60.6 kg Intake: IV 104 / 104 SoluMEDROL Inj 250 MG In NS Inj 104 / 104 100 ML @ 200 mls/hr IV.SIG ONCE ONE Rx#:[id number] Other: # Voids 2 Date of Last Bowel Movement 01/27/18 01/27/18 Narrative: GEN: Well-developed, well-nourished patient. No acute distress. CV: Regular rate and rhythm without obvious murmurs LUNGS: Clear to auscultation bilaterally. Normal respiratory effort. No wheezes , rales, rhonchi. GI: Soft, nontender, nondistended. No palpable masses. Bowel sounds WNL. EXT: No edema. NEURO/PSYCH: Afocal. Awake, alert, and oriented x3. Appropriate insight and judgment. Results - Labs CBC & Chem 7: 01/27/18 04:52 01/27/18 04:51 - Imaging Impressions Head/Brain Mag Res Venography 01/27/18 08:39 CONCLUSION: 1. Deep and superficial venous system appears widely patent. Assessment and Plan - Assessment (1) Acute ischemic stroke Code(s): I63.9 - Cerebral infarction, unspecified Status: Acute (2) Hypertension Code(s): I10 - Essential (primary) hypertension Status: Acute - Plan This 72-year-old right-handed man developed generalized weakness and loss of use of his left arm. 1. Ischemic stroke versus TIA versus hypertensive emergency -Patient improved following TPA treatment -Maintain blood pressure less than 180/100 -Continue long-term blood pressure control with an JOSE inhibitor -Neurology consulted, recommendations appreciated, cleared for discharge home -Continue with neuro checks -Continue physical therapy at home with home health 2. Reported alcohol abuse -Continue CIWA protocol DVT prophylaxis with SCDs GI prophylaxis with Pepcid Code Status: Full Discharge Planning: Cleared for discharge home with home health (2) Hypertension Qualifiers: Hypertension type: essential hypertension Qualified Code(s): I10 - Essential (primary) hypertension
--- NOTE | 2018-01-28 11:11 | P.DCO ---
- Diagnosis (1) Hypertension - Physical Therapy Order: Evaluate and treat, Improve ambulation, Strength and gait training - Certification I have seen patient Zachary Lang on 01/28/18. My clinical findings support the need for the requested home health care services because: Limited mobility due to disease progression, Deconditioned with increased weakness, High risk of falls I certify that my clinical findings support that this patient is homebound because: Unsteady gait/balance (1) Hypertension Qualifiers: Hypertension type: essential hypertension Qualified Code(s): I10 - Essential (primary) hypertension
--- NOTE | 2018-01-28 11:17 | P.DS ---
Date of admission: 01/24/18 11:49 Primary care physician: UNKNOWN Anticipated date of discharge: 01/28/18 Brief History from admission: This 72-year-old right-handed man developed generalized weakness and loss of use of his left arm. On arrival to the emergency department he had a left facial droop and his speech was slurred. He is on no anticoagulants and has no tendency for bleeding. CT of the head was negative for acute injury and received TPA. CT angiography of the neck and head vessels was negative aside from mild atherosclerotic disease. The gentleman is left-sided weakness improved considerably after TPA. His speech is much improved but he still has some slurring. This patient admits to drinking 4-5 bottles of beer a day and occasionally imbibes whiskey. His toxicology screen was negative on arrival but the emergency department did not check for alcohol level. DS: Diagnosis - Discharge Diagnosis (1) Hypertension Status: Acute (2) Acute ischemic stroke Status: Acute DS: Summary Hospital Course: Patient was admitted for ischemic stroke. Received TPA. Progressively recovered after receiving the TPA. At time of discharge patient was stable enough to return home with home health and continued physical therapy. Patient was started on lisinopril for preventive measures elevated hypertension. - Time Spent with Patient Total time spent providing and/or coordinating discharge services: Less than 30 minutes - Quality: Stroke Last date observed well: 01/24/18 Last time observed well: 10:15 - Quality: VTE Deep Vein Thrombosis/Pulmonary Embolism Present on Admission: No Exam Vital signs: Vital Signs 01/27/18 12:00 01/27/18 16:00 01/27/18 20:00 Temperature 97.9 F 97.4 F L 98.6 F Pulse Rate 62 92 H 79 Respiratory Rate 18 18 18 Blood Pressure 164/93 H 119/84 124/77 Pulse Oximetry 98 99 95 01/27/18 21:17 01/27/18 23:59 01/28/18 01:32 Temperature 98.4 F Pulse Rate 88 80 Respiratory Rate 18 Blood Pressure 170/83 H 148/76 H Pulse Oximetry 97 96 01/28/18 02:09 01/28/18 04:00 01/28/18 07:00 Temperature 98.2 F Pulse Rate 69 Respiratory Rate 18 18 12 Blood Pressure 116/77 Pulse Oximetry 97 01/28/18 08:00 Temperature 97.6 F Pulse Rate 64 Respiratory Rate 20 Blood Pressure 138/62 Pulse Oximetry 98 Intake & Output 01/27/18 01/28/18 01/28/18 18:59 06:59 18:59 Intake Total 104 / 104 Balance 104 / 104 Weight 60.6 kg Intake: IV 104 / 104 SoluMEDROL Inj 250 MG In NS Inj 104 / 104 100 ML @ 200 mls/hr IV.SIG ONCE ONE Rx#:[id number] Other: # Voids 2 Date of Last Bowel Movement 01/27/18 01/27/18 Narrative: GEN: Well-developed, well-nourished patient. No acute distress. CV: Regular rate and rhythm without obvious murmurs LUNGS: Clear to auscultation bilaterally. Normal respiratory effort. No wheezes , rales, rhonchi. GI: Soft, nontender, nondistended. No palpable masses. Bowel sounds WNL. EXT: No edema. NEURO/PSYCH: Afocal. Awake, alert, and oriented x3. Appropriate insight and judgment. Results Procedures completed during hospitalization: TPA given - Impressions ITS Impressions Chest X-Ray 01/24/18 10:58 CONCLUSION: 1. No acute abnormality or significant interval change. Head CTA 01/24/18 10:58 CONCLUSION: 1. Mild atherosclerotic disease, otherwise unremarkable. Neck CTA 01/24/18 10:58 CONCLUSION: 1. Mild atherosclerotic changes, otherwise unremarkable. Head MRI 01/25/18 00:00 CONCLUSION: 1. 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 2. Susceptibility artifact right basal ganglia could be related to calcification or old hemorrhage. 3. No acute intracranial abnormality. Head CT 01/25/18 11:39 CONCLUSION: 1. Nonspecific white matter changes. 2. No acute hemorrhage . Head/Brain Mag Res Venography 01/27/18 08:39 CONCLUSION: 1. Deep and superficial venous system appears widely patent. Discharge Plan - Discharge Disposition Patient Disposition: /Home Health Service - Discharge Condition Condition: Stable - Discharge Order Discharge Orders: Discharge Order (Routine); Ordered 01/28/18 Ordered By: Mookie Subramanian - Discharge Details Anticipated Discharge Date: 01/28/18 - Physicians Team Primary Care Provider: UNKNOWN, Attending Provider: Mookie Subramanian Other Providers: [employer] ; Aj Hall MD ; [facility]
== END 2018-01-28 12:01 | disposition home health service (06) ==
LOC: NEPC 10:43 → NEDA 11:49 → N03 15:23 → N05 01-25 17:54
PROVIDERS: ADMIT Hospitalist; ATTEND Hospitalist